=== PATIENT | male | born 1935 | race Caucasian/White ===

== ENCOUNTER → 2016-10-13 | Outpatient (REF) | payer MEDICARE, OTHER ==
[2016-10-13 11:37] LABS: ALBUMIN 4.1 GM/DL (3.2-5.2); ALBUMIN/GLOBULIN RATIO 1.41 (1.00-1.93); ALKALINE PHOSPHATASE 82 U/L (45-117); ALT/SGPT 34 U/L (12-78); ANION GAP 5 MEQ/L (8-16); AST/SGOT 25 U/L (15-37); BILIRUBIN,TOTAL 0.5 MG/DL (0.2-1.0); BLOOD UREA NITROGEN 22 MG/DL (7-18); CARBON DIOXIDE LEVEL 30 MEQ/L (21-32); CHLORIDE LEVEL 106 MEQ/L (98-107); GLOMERULAR FILTRATION RATE > 60.0 (>35); GLUCOSE, FASTING 239 MG/DL (83-110); SODIUM LEVEL 141 MEQ/L (136-145)
== END ==
LOC: M SFHCCLAY 08:23
PROVIDERS: ATTEND Family Medicine
DX: E11.9 Type 2 diabetes mellitus without complications (principal)
CPT/HCPCS: 80053; 83036; G0463

== ENCOUNTER → 2016-11-02 | Outpatient (CLI) | payer MEDICARE, OTHER ==
--- NOTE | 2016-11-02 12:09 | REP ---
TRIPLE PHASE BONE SCAN OF THE HIPS: Following the intravenous administration of 20.5 millicuries technetium 99m MDP, the patient's hips are imaged in the flow phase in the anterior and posterior projections. There is vague increased blood flow to the region of the hip on the posterior images. Immediate blood pool and 2-hour delayed images are performed of the hips in the anterior, posterior, both anterior and posterior oblique and both lateral projections. There is increased blood pooling in the region of the pelvis medial to the right hip. There is focal increased delayed activity in the right ischium inferolaterally compatible with a fracture. IMPRESSION: Increased blood flow, blood pooling, and delayed activity in the right ischium inferolaterally. This is compatible with an acute fracture at this location. Signed by Alan Corral MD 11/02/2016 12:30 P
== END ==
LOC: M RAD 08:01
PROVIDERS: ATTEND Orthopaedic Surgery
DX: M25.551 Pain in right hip (principal)
CPT/HCPCS: 78315; A9503

== ENCOUNTER → 2017-01-12 | Outpatient (REF) | payer MEDICARE, OTHER ==
[2017-01-12 11:54] LABS: ALBUMIN 3.8 GM/DL (3.2-5.2); ALBUMIN/GLOBULIN RATIO 1.36 (1.00-1.93); ALKALINE PHOSPHATASE 70 U/L (45-117); ALT/SGPT 35 U/L (12-78); ANION GAP 6 MEQ/L (8-16); AST/SGOT 24 U/L (15-37); BILIRUBIN,TOTAL 0.5 MG/DL (0.2-1.0); BLOOD UREA NITROGEN 19 MG/DL (7-18); CALCIUM LEVEL 8.8 MG/DL (8.8-10.2); CARBON DIOXIDE LEVEL 30 MEQ/L (21-32); CHLORIDE LEVEL 105 MEQ/L (98-107); CHOLESTEROL LEVEL 136 MG/DL (<200); CREATININE FOR GFR 0.84 MG/DL (0.70-1.30); GLOMERULAR FILTRATION RATE > 60.0 (>35); GLUCOSE, FASTING 155 MG/DL (83-110); POTASSIUM SERUM 4.9 MEQ/L (3.5-5.1); SODIUM LEVEL 141 MEQ/L (136-145); TOTAL PROTEIN 6.6 GM/DL (6.4-8.2); TRIGLYCERIDES LEVEL 36 MG/DL (<150)
== END ==
LOC: M SFHCCLAY 08:05
PROVIDERS: ATTEND Family Medicine
DX: E11.9 Type 2 diabetes mellitus without complications (principal); E78.2 Mixed hyperlipidemia
CPT/HCPCS: 80053; 80061; 83036; G0463

== ENCOUNTER → 2017-02-09 | Outpatient (CLI) | payer MEDICARE, OTHER ==
--- NOTE | 2017-02-09 12:58 | REP ---
Cervical spine seven views: Vertebral body heights and alignment are normal. There is disc space narrowing and degenerative disc disease at C 05/06 and C6-7. The prevertebral soft tissues are unremarkable. The facets are normally aligned. There is no listhesis on flexion or extension. The odontoid view is unremarkable. There are calcifications in the soft tissues bilaterally, likely vascular atheroma in the carotid arteries. There is foraminal encroachment from uncinate spurring on the left at C 05/06. There is mild foraminal encroachment from uncinate spurring on the right at C 05/06. Impression: C5-6 C6-7 degenerative disc disease. Foraminal encroachment as described.
== END ==
LOC: M CLY 11:53
PROVIDERS: ATTEND Family Medicine
DX: M62.838 Other muscle spasm (principal); M50.30 Other cervical disc degeneration, unspecified cervical region
CPT/HCPCS: 72050; G0463

== ENCOUNTER → 2017-04-19 | Outpatient (REF) | payer MEDICARE, OTHER ==
[2017-04-19 13:49] LABS: ALBUMIN 3.6 GM/DL (3.2-5.2); ALKALINE PHOSPHATASE 68 U/L (45-117); ALT/SGPT 29 U/L (12-78); ANION GAP 9 MEQ/L (8-16); AST/SGOT 16 U/L (15-37); BILIRUBIN,TOTAL 0.5 MG/DL (0.2-1.0); BLOOD UREA NITROGEN 15 MG/DL (7-18); CALCIUM LEVEL 8.3 MG/DL (8.8-10.2); CARBON DIOXIDE LEVEL 29 MEQ/L (21-32); CHLORIDE LEVEL 104 MEQ/L (98-107); CREATININE FOR GFR 0.89 MG/DL (0.70-1.30); GLOMERULAR FILTRATION RATE > 60.0 (>35); GLUCOSE, FASTING 266 MG/DL (83-110); POTASSIUM SERUM 5.1 MEQ/L (3.5-5.1); SODIUM LEVEL 142 MEQ/L (136-145); TOTAL PROTEIN 6.6 GM/DL (6.4-8.2)
== END ==
LOC: M SFHCCLAY 09:03
PROVIDERS: ATTEND Family Medicine
DX: E11.9 Type 2 diabetes mellitus without complications (principal)
CPT/HCPCS: 80053; 83036; G0463

== ENCOUNTER → 2017-11-05 | Outpatient (REF) | payer MEDICARE, OTHER ==
[2017-11-05 11:32] LABS: BASO % 0.7 % (0.0-1.0); EOS % 0.7 % (0.0-3.0); HEMATOCRIT 40.2 % (42.0-52.0); HEMOGLOBIN 13.1 g/dl (14.0-18.0); IMMATURE GRANULOCYTE % 0.2 % (0-3.0); LYMPH # 1.6 10^3/uL (1.5-4.5); LYMPH % 28.5 % (24.0-44.0); MEAN CORPUSCULAR HEMOGLOBIN 30.9 pg (27.0-33.0); MEAN CORPUSCULAR HGB CONC 32.6 g/dl (32.0-36.5); MEAN CORPUSCULAR VOLUME 94.8 fl (80.0-96.0); MONO # 0.5 10^3/uL (0.0-0.8); MONO % 9.3 % (0.0-5.0); NEUTROPHILS # 3.3 10^3/uL (1.8-7.7); NEUTROPHILS % 60.6 % (36.0-66.0); PLATELET COUNT, AUTOMATED 250 10^3/uL (150-450); RED BLOOD COUNT 4.24 10^6/uL (4.30-6.10); RED CELL DISTRIBUTION WIDTH 13.6 % (11.5-14.5); WHITE BLOOD COUNT 5.5 10^3/uL (4.0-10.0)
[2017-11-05 11:49] LABS: ALBUMIN 3.8 GM/DL (3.2-5.2); ALBUMIN/GLOBULIN RATIO 1.23 (1.00-1.93); ALKALINE PHOSPHATASE 77 U/L (45-117); ALT/SGPT 26 U/L (12-78); ANION GAP 3 MEQ/L (8-16); AST/SGOT 26 U/L (7-37); BILIRUBIN,TOTAL 0.7 MG/DL (0.2-1.0); BLOOD UREA NITROGEN 16 MG/DL (7-18); CALCIUM LEVEL 8.7 MG/DL (8.8-10.2); CARBON DIOXIDE LEVEL 30 MEQ/L (21-32); CHLORIDE LEVEL 106 MEQ/L (98-107); GLOMERULAR FILTRATION RATE > 60.0 (>35); GLUCOSE, FASTING 348 MG/DL (70-100); SODIUM LEVEL 139 MEQ/L (136-145); TOTAL PROTEIN 6.9 GM/DL (6.4-8.2)
[2017-11-05 11:50] LABS: POTASSIUM SERUM 5.3 MEQ/L (3.5-5.1)
[2017-11-05 13:44] LABS: ESTIMATED AVERAGE GLUCOSE 203 MG/DL (60-110); HEMOGLOBIN A1c 8.7 %
== END ==
LOC: M SFHCCLAY 07:38
DX: E11.9 Type 2 diabetes mellitus without complications (principal); E78.2 Mixed hyperlipidemia; R53.83 Other fatigue; R03.0 Elevated blood-pressure reading, without diagnosis of hypertension
CPT/HCPCS: 84443

== ENCOUNTER → 2017-12-12 | Outpatient (REF) | payer MEDICARE, OTHER | LOC: M SFHCCLAY 09:20 | DX: E03.9 Hypothyroidism, unspecified (principal) | CPT/HCPCS: 84443 ==

== ENCOUNTER → 2018-05-09 | Outpatient (REF) | payer MEDICARE, OTHER ==
[2018-05-10 13:36] LABS: ALBUMIN 4.1 GM/DL (3.2-5.2); ALBUMIN/GLOBULIN RATIO 1.37 (1.00-1.93); ALKALINE PHOSPHATASE 72 U/L (45-117); ALT/SGPT 31 U/L (12-78); ANION GAP 10 MEQ/L (8-16); AST/SGOT 19 U/L (7-37); BILIRUBIN,TOTAL 0.5 MG/DL (0.2-1.0); BLOOD UREA NITROGEN 15 MG/DL (7-18); CALCIUM LEVEL 9.2 MG/DL (8.8-10.2); CARBON DIOXIDE LEVEL 27 MEQ/L (21-32); CHLORIDE LEVEL 104 MEQ/L (98-107); CHOLESTEROL LEVEL 130 MG/DL (<200); CHOLESTEROL RISK RATIO 2.407 (<5); CREATININE FOR GFR 0.91 MG/DL (0.70-1.30); GLOMERULAR FILTRATION RATE > 60.0 (>35); GLUCOSE, FASTING 308 MG/DL (70-100); HDL CHOLESTEROL 54 MG/DL (>40); LDL CHOLESTEROL 58 MG/DL (<100); NON-HDL-C 76 MG/DL; POTASSIUM SERUM 5.1 MEQ/L (3.5-5.1); SODIUM LEVEL 141 MEQ/L (136-145); TOTAL PROTEIN 7.1 GM/DL (6.4-8.2); TRIGLYCERIDES LEVEL 89 MG/DL (<150)
[2018-05-10 14:18] LABS: ESTIMATED AVERAGE GLUCOSE 180 MG/DL (60-110); HEMOGLOBIN A1c 7.9 %
== END ==
LOC: M SFHCCLAY 14:27
DX: E78.2 Mixed hyperlipidemia (principal); E11.9 Type 2 diabetes mellitus without complications; E03.9 Hypothyroidism, unspecified
CPT/HCPCS: 84443

== ENCOUNTER 2018-11-02 00:02 | Emergency (ER) | payer MEDICARE, OTHER ==
[~2018-11-02] VITALS: Ht 177.8 cm; Wt 81.8 kg
[2018-11-02] MEDS ORDERED: LEVO50TA5 PO (00:12)
[2018-11-02] MEDS ORDERED: METF10004 PO (00:12)
[2018-11-02] MEDS ORDERED: HUMA100I5 (00:12)
[2018-11-02] MEDS ORDERED: LANTINJ4 SQ (00:12)
[2018-11-02] MEDS ORDERED: ASPIRIN 325 MG TAB PO ONE (00:30)
[2018-11-02 00:52] LABS: BASO % 0.4 % (0.0-1.0); EOS # 0.1 10^3/uL (0.0-0.50); EOS % 1.6 % (0.0-3.0); HEMATOCRIT 37.1 % (42.0-52.0); HEMOGLOBIN 12.3 g/dl (13.5-17.5); LYMPH # 1.9 10^3/uL (1.5-4.5); LYMPH % 27.6 % (24.0-44.0); MEAN CORPUSCULAR HEMOGLOBIN 31.1 pg (27.0-33.0); MEAN CORPUSCULAR HGB CONC 33.2 g/dl (32.0-36.5); MEAN CORPUSCULAR VOLUME 93.7 fl (80.0-96.0); MONO # 0.6 10^3/uL (0.0-0.8); MONO % 8.5 % (0.0-5.0); NEUTROPHILS # 4.2 10^3/uL (1.8-7.7); NEUTROPHILS % 61.6 % (36.0-66.0); PLATELET COUNT, AUTOMATED 224 10^3/uL (150-450); RED BLOOD COUNT 3.96 10^6/uL (4.30-6.10); VENOUS BASE EXCESS 4.4 (-2.0-2.0); VENOUS HCO3 31.3 MEQ/L (23.0-27.0); VENOUS O2 SATURATION 58.8 % (60.0-80.0); VENOUS PARTIAL PRESSURE CO2 56.3 mmHg (38.0-50.0); VENOUS PARTIAL PRESSURE O2 31.5 mmHg (30.0-50.0); VENOUS PH 7.363 UNITS (7.330-7.430); VENOUS STANDARD HCO3 27.5 MEQ/L; WHITE BLOOD COUNT 6.9 10^3/uL (4.0-10.0)
[2018-11-02 01:18] LABS: BLOOD UREA NITROGEN 15 MG/DL (7-18); CALCIUM LEVEL 8.4 MG/DL (8.8-10.2); CARBON DIOXIDE LEVEL 29 MEQ/L (21-32); CHLORIDE LEVEL 105 MEQ/L (98-107); CPK CREATINE PHOSPHOKINASE 212 U/L (39-308); CREATININE FOR GFR 1.03 MG/DL (0.70-1.30); GLOMERULAR FILTRATION RATE > 60.0 (>35); GLUCOSE, FASTING 300 MG/DL (70-100); MB/CK RELATIVE INDEX 3.63 (< OR =4); POTASSIUM SERUM 3.9 MEQ/L (3.5-5.1); SODIUM LEVEL 139 MEQ/L (136-145); TROPONIN I 0.72 NG/ML (< 0.10)
[2018-11-02 01:25] LABS: INR 1.04; PROTHROMBIN TIME 13.7 SECONDS (12.1-14.4)
[2018-11-02] MEDS ORDERED: CLOPIDOGREL 300 MG TAB (PLAVIX) PO STA (01:37)
[2018-11-02] MEDS ORDERED: HEPARIN DRIP 25,000 UNITS in APPROPRIATE DILUENT 1 EA IV SCH (01:37)
[2018-11-02] MEDS ORDERED: NITROGLYCERIN 2% OINT 1 GM *U/D* PKT TOP ONE (01:45)
[2018-11-02] MEDS ORDERED: HEPARIN SOD (PORCINE) 5000 UNITS/ML VIAL IV ONE (01:45)
[2018-11-02] MEDS ORDERED: HumaLOG INSULIN (NovoLOG) PER UNIT SC STA (02:03)
[2018-11-02] MEDS ORDERED: SYNT25TA PO (02:28)
[2018-11-02] MEDS ORDERED: PRAV40TA2 PO (02:28)
[2018-11-02] MEDS ORDERED: OMEP20CA3 PO (02:28)
[2018-11-02] MEDS ORDERED: ASPI81TA28 PO (02:30)
[2018-11-02 03:43] VITALS: BP 130/69
--- NOTE | 2018-11-02 07:35 | ECGEPIP ---
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
--- NOTE | 2018-11-02 11:00 | REP ---
CHEST, TWO VIEWS: Two views of the chest were performed. Comparison is made with prior study 08/29/2007. There is no acute infiltrate. The heart is normal in size. There is mild calcification and tortuosity of the thoracic aorta. The mediastinal silhouette is unchanged. There are mild degenerative changes of the spine. IMPRESSION: No evidence of acute pulmonary disease. Electronically Signed by Alan Corral MD 11/02/2018 06:56 P
== END 2018-11-02 03:49 | disposition short-term general hospital (02) ==
LOC: M ED 00:02
DX: I21.4 Non-ST elevation (NSTEMI) myocardial infarction (principal); R00.1 Bradycardia, unspecified; E11.9 Type 2 diabetes mellitus without complications; E78.5 Hyperlipidemia, unspecified; E03.9 Hypothyroidism, unspecified; K21.9 Gastro-esophageal reflux disease without esophagitis; Z95.5 Presence of coronary angioplasty implant and graft; Z87.891 Personal history of nicotine dependence

== ENCOUNTER 2018-11-22 18:43 | Inpatient (IN) | payer MEDICARE, OTHER ==
[~2018-11-22] VITALS: Ht 180.3 cm; Wt 84.5 kg
[~2018-11-22 18:43] MED LIST: ASPI81TA28 PO; HUMA100I5 SQ; LANTINJ4 SQ; LEVO50TA5 PO; METF10004 PO; OMEP20CA3 PO; PRAV40TA2 PO; SYNT25TA PO
[2018-11-22] MEDS ORDERED: CLOP75TA2 PO (18:55)
[2018-11-22] MEDS ORDERED: AZOP0.2S OU (19:00)
[2018-11-22] MEDS ORDERED: LATANOPROST (19:00)
[2018-11-22] MEDS ORDERED: NITR0.4S14 PO (19:00)
[2018-11-22] MEDS ORDERED: REST0.05 OU (19:00)
[2018-11-22] MEDS ORDERED: LEVO50TA5 PO (19:00)
[2018-11-22] MEDS ORDERED: VITA1CAP21 PO (19:00)
[2018-11-22 19:47] LABS: BASO % 0.5 % (0.0-1.0); EOS # 0.1 10^3/uL (0.0-0.50); EOS % 1.2 % (0.0-3.0); HEMATOCRIT 36.1 % (42.0-52.0); LYMPH # 1.8 10^3/uL (1.5-4.5); LYMPH % 31.3 % (24.0-44.0); MEAN CORPUSCULAR HEMOGLOBIN 31.1 pg (27.0-33.0); MEAN CORPUSCULAR HGB CONC 33.2 g/dl (32.0-36.5); MEAN CORPUSCULAR VOLUME 93.5 fl (80.0-96.0); MONO # 0.5 10^3/uL (0.0-0.8); MONO % 8.9 % (0.0-5.0); NEUTROPHILS # 3.3 10^3/uL (1.8-7.7); NEUTROPHILS % 57.9 % (36.0-66.0); PLATELET COUNT, AUTOMATED 224 10^3/uL (150-450); RED BLOOD COUNT 3.86 10^6/uL (4.30-6.10); WHITE BLOOD COUNT 5.7 10^3/uL (4.0-10.0)
[2018-11-22 19:59] LABS: INR 1.08; PROTHROMBIN TIME 14.1 SECONDS (12.1-14.4)
[2018-11-22 20:11] LABS: BLOOD UREA NITROGEN 16 MG/DL (7-18); CALCIUM LEVEL 8.4 MG/DL (8.8-10.2); CARBON DIOXIDE LEVEL 27 MEQ/L (21-32); CHLORIDE LEVEL 107 MEQ/L (98-107); CPK CREATINE PHOSPHOKINASE 151 U/L (39-308); CREATININE FOR GFR 1.21 MG/DL (0.70-1.30); GLOMERULAR FILTRATION RATE > 60.0 (>35); GLUCOSE, FASTING 169 MG/DL (70-100); MB/CK RELATIVE INDEX 2.25 (< OR =4); POTASSIUM SERUM 3.9 MEQ/L (3.5-5.1); SODIUM LEVEL 141 MEQ/L (136-145)
[2018-11-22 20:23] LABS: NT-PRO BNP 875 PG/ML (<450)
[2018-11-22] MEDS ORDERED: LISI-1046 PO (20:47)
--- NOTE | 2018-11-22 22:03 | ECGEPIP ---
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
[2018-11-23 00:31] LABS: MB/CK RELATIVE INDEX 2.05 (< OR =4); TROPONIN I 0.09 NG/ML (< 0.10)
[2018-11-23] MEDS ORDERED: ISOVUE-370 76% 100ML VIAL (Q9967) As Ordered ONE (00:35)
--- NOTE | 2018-11-23 01:06 | REPVR ---
EXAM: CT Angiography Chest With Contrast EXAM DATE/TIME: 11/23/2018 12:15 AM CLINICAL HISTORY: 83 years old, male; Signs and symptoms; Dyspnea; Additional info: Dysp TECHNIQUE: Imaging protocol: Axial computed tomographic angiography images of the chest with intravenous contrast using CT angiography protocol. Coronal and sagittal reformatted images were created and reviewed. 3D rendering: MIP reconstructed images were created and reviewed. Radiation optimization: All CT scans at this facility use at least one of these dose optimization techniques: automated exposure control; mA and/or kV adjustment per patient size (includes targeted exams where dose is matched to clinical indication); or iterative reconstruction. Contrast material: iso Contrast volume: 75 ml Contrast route: ac COMPARISON: CR PORTABLE CHEST X-RAY 11/22/2018 7:29 PM FINDINGS: Pulmonary arteries: Main pulmonary artery is enlarged measuring 3.3 cm may represent pulmonary hypertension. No filling defect to suggest pulmonary embolism. Aorta: Ascending thoracic aorta as borderline enlarged measuring up to 3.4 cm. Lungs: Atelectasis in the lingula. Ground glass densities bilateral lower lobes likely edema versus inflammation or infection. Pleural space: Normal. No pneumothorax. No pleural effusion. Heart: Cardiomegaly. Coronary calcifications. Lymph nodes: Unremarkable. No enlarged lymph nodes. Bones/joints: Linear degenerative changes. Diffuse demineralization of the bones with degenerative changes. Soft tissues: Unremarkable. Other findings: Atherosclerosis. IMPRESSION: No evidence of pulmonary embolism. Atelectasis in the lingula. Ground glass densities bilateral lower lobes likely edema versus inflammation or infection. Electronically signed by: Anni Kaur On 11/23/2018 01:05:50 AM
[2018-11-23] MEDS ORDERED: XALA0.007 OU (02:58)
[2018-11-23] MEDS ORDERED: ATOR40TA75 PO (02:58)
[2018-11-23] MEDS ORDERED: GLUCOSE 4 GM CHEW TABLET PO PRN (03:30)
[2018-11-23] MEDS ORDERED: DEXTROSE 50% 50 ML SYRINGE IV PRN (03:30)
[2018-11-23] MEDS ORDERED: GLUCAGON FOR INJ 1 MG VIAL (J1610) SC PRN (03:30)
[2018-11-23 04:41] VITALS: BP 145/75
[2018-11-23] MEDS: LEVOTHYROXINE 50MCG TABLET (0.05MG) PO SCH (05:58)
[2018-11-23 06:37] LABS: BASO % 0.6 % (0.0-1.0); EOS # 0.1 10^3/uL (0.0-0.50); HEMATOCRIT 35.7 % (42.0-52.0); HEMOGLOBIN 11.6 g/dl (13.5-17.5); LYMPH # 1.4 10^3/uL (1.5-4.5); LYMPH % 27.8 % (24.0-44.0); MEAN CORPUSCULAR HEMOGLOBIN 30.3 pg (27.0-33.0); MEAN CORPUSCULAR HGB CONC 32.5 g/dl (32.0-36.5); MEAN CORPUSCULAR VOLUME 93.2 fl (80.0-96.0); MONO # 0.5 10^3/uL (0.0-0.8); MONO % 10.3 % (0.0-5.0); NEUTROPHILS % 59.1 % (36.0-66.0); PLATELET COUNT, AUTOMATED 197 10^3/uL (150-450); RED BLOOD COUNT 3.83 10^6/uL (4.30-6.10); WHITE BLOOD COUNT 5.1 10^3/uL (4.0-10.0)
--- NOTE | 2018-11-23 06:39 | HPEPDOC ---
General Date of Admission 11/23/18 Attending Physician: SILAS CHILDRESS MD Chief Complaint The patient is a 83-year-old male admitted with a reason for visit of Chest Pain / Discomfort. Source: Patient, Old records Exam Limitations: No limitations History of Present Illness 83 year old male with PMH of CAD s/p stents in 2010 and another stent in october 2018, Diabetes, hypothyroid, hypertension, hyperlipidemia, GERD, bradycardia presented to the ED with complaints of exertional dyspnea slowly worsening over the past 1 week. 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 Last evening he wanted to walk to the barn to check on an animal and could hardly making it there for SOB so came to the ED for evaluation. Home Medications Scheduled Aspirin (Aspirin EC) 81 Mg Tab, 81 MG PO DAILY, (Reported) Atorvastatin Calcium (Atorvastatin Calcium) 40 Mg Tablet, 40 MG PO QHS, (Reported) Brinzolamide (Azopt) 10 Ml Drops.susp, 1 DROP OU DAILY, (Reported) Clopidogrel Bisulfate (Clopidogrel) 75 Mg Tablet, 75 MG PO QPM, (Reported) Insulin Glargine,Hum.rec.anlog (Lantus Solostar) 100 Unit/Ml Inj, 40 UNITS SQ DAILY, (Reported) Insulin Lispro (Humalog Kwikpen U-100) 100 Unit/Ml Inj, 1 DOSE SQ ACHS, (Reported) PER SLIDING SCALE Latanoprost (Xalatan) 2.5 Ml Drops, 1 DROP OU QHS, (Reported) Levothyroxine Sodium (Levothyroxine Sodium) 50 Mcg Tablet, 50 MCG PO QAM, (Rep orted) Lisinopril (Lisinopril) 2.5 Mg Tablet, 2.5 MG PO BID, (Reported) Metformin HCl (Metformin HCl) 1,000 Mg Tab, 1,000 MG PO BID, (Reported) Omeprazole (Omeprazole) 20 Mg Cap, 20 MG PO DAILY, (Reported) Vitamin A Palmitate (Vitamin A) 10,000 Unit Capsule, 10,000 UNIT PO DAILY, (Reported) Scheduled PRN Cyclosporine (Restasis) 1 Each Droperette, 1 DROP OU BID PRN for DRY EYES, (Reported) Nitroglycerin (Nitroglycerin) 0.4 Mg Tab.subl, 0.4 MG PO Q5MP PRN for CHEST PAIN, (Reported) Allergies Coded Allergies: No Known Allergies (Unverified , 11/02/18) Past Medical History Medical History CAD s/p angioplasty and stent on november 03 2018 Diabetes Hypertension Bradycardia HYPERLIPIDEMIA HISTORY OF SCC LEFT LOWER CALF 05/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 WRIST 06/20 OSTEOPOROSIS BCC- RIGHT EAR 10/28 Hypothyroid Surgical History LEFT SHOULDER ROTATOR CUFF REPAIR 09/19 3 CARDIAC STENTS PLACED 04/13/11 LEFT WRIST CARPAL TUNNEL APPENDECTOMY BILATERAL TRIGGER FINGER CARDIAC STENT X1 AND ANGIOPLASTY X 1 10/2018 Review of Systems Constitutional: Denies: Chills, Fever, Malaise, Weakness, Fatigue ENT: Denies: Head Aches, Ear Pain, Dysphagia Skin: Denies: Rash, Lesions, Breakdown Pulmonary: Reports: Dyspnea; Denies: Cough, Pleuritic Chest Pain, Other Symptoms Cardiovascular: Reports: Chest Pain Gastrointestinal: Denies: Nausea, Vomiting, Abdominal Pain, Diarrhea, Constipat ion Genitourinary: Denies: Dysuria, Frequency, Incontinence, Retention Physical Examination General Exam: Positive: Alert, Cooperative, No Acute Distress Eye Exam: Positive: PERRLA, Conjunctiva & lids normal, EOMI; Negative: Sclera icteric ENT Exam: Positive: Atraumatic, Mucous membr. moist/pink, Pharynx Normal Neck Exam: Negative: Supple, JVD, thyromegaly, +2 carotid pulse wo bruit Chest Exam: Positive: Clear to auscultation, Normal air movement Heart Exam: Positive: Bradycardic, Regular Rhythm, Normal S1, Normal S2; Negative: Gallops, Murmurs, Rubs Telemetry: Positive: Bradycardia Abdomen Exam: Positive: Normal bowel sounds, Soft; Negative: Tenderness, Hepatospenomegaly, Mass, Hernia, Other Vital Signs Vital Signs Date Time Temp Pulse Resp B/P (MAP) Pulse Ox O2 Delivery O2 Flow Rate FiO2 11/23/18 02:15 48 18 92 Room Air 11/23/18 00:30 125/59 (81) 11/22/18 18:44 96.3 Laboratory Data Labs 24H Laboratory Tests 2 11/22/18 19:27: Immature Granulocyte % (Auto) 0.2, White Blood Count 5.7, Red Blood Count 3.86L, Hemoglobin 12.0L, Hematocrit 36.1L, Mean Corpuscular Volume 93.5, Mean Corpuscular Hemoglobin 31.1, Mean Corpuscular Hemoglobin Concent 33.2, Red Cell Distribution Width 13.4, Platelet Count 224, Neutrophils (%) (Auto) 57.9, Lymphocytes (%) (Auto) 31.3, Monocytes (%) (Auto) 8.9H, Eosinophils (%) (Auto) 1.2, Basophils (%) (Auto) 0.5, Neutrophils # (Auto) 3.3, Lymphocytes # (Auto) 1.8, Monocytes # (Auto) 0.5, Eosinophils # (Auto) 0.1, Basophils # (Auto) 0.0, Nucleated Red Blood Cells % (auto) 0.0, Prothrombin Time 14.1, Prothromb Time International Ratio 1.08, Anion Gap 7L, Glomerular Filtration Rate > 60.0, Blood Urea Nitrogen 16, Creatinine 1.21, Sodium Level 141, Potassium Level 3.9, Chloride Level 107, Carbon Dioxide Level 27, Calcium Level 8.4L, Total Creatine Kinase 151, Creatine Kinase MB 3.0, Creatine Kinase MB Relative Index 2.25, Troponin I 0.10, EV-Gzq-B-Type Natriuretic Peptide 875H 11/22/18 20:52: Bedside Glucose (Misc Panel) 133H 11/22/18 23:15: Bedside Glucose (Misc Panel) 71L 11/22/18 23:51: Total Creatine Kinase 146, Creatine Kinase MB 3.0, Creatine Kinase MB Relative Index 2.05, Troponin I 0.09 CBC/BMP Laboratory Tests 11/22/18 19:27 Red Blood Count 3.86 L, Mean Corpuscular Volume 93.5, Mean Corpuscular Hemoglobin 31.1, Mean Corpuscular Hemoglobin Concent 33.2, Red Cell Distribution Width 13.4, Neutrophils (%) (Auto) 57.9, Lymphocytes (%) (Auto) 31.3, Monocytes (%) (Auto) 8.9 H, Eosinophils (%) (Auto) 1.2, Basophils (%) (Auto) 0.5, Neutrophils # (Auto) 3.3, Lymphocytes # (Auto) 1.8, Monocytes # (Auto) 0.5, Eosinophils # (Auto) 0.1, Basophils # (Auto) 0.0, Calcium Level 8.4 L, Total Creatine Kinase 151 Assessment/Plan 83 year old male with PMH of CAD s/p stents in 2010 and another stent in october 2018, Diabetes, hypothyroid, hypertension, hyperlipidemia, GERD, bradycardia presented to the ED with complaints of exertional dyspnea slowly worsening over the past 1 week. 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 Last evening he wanted to walk to the barn to check on an animal and could hardly making it there for SOB so came to the ED for evaluation. Dyspnea on exertion possible ongoing angina vs CHF will get echo give iv lasix continue asa, plavix, statin, nitro prn Follow with Dr Harry. consider consulting him. Coronary artery disease s/p stents in 2010 and again in October 2018 continue ASA, plavix, statin Sinus bradycardia patient is not on any A-V blocking medicines will place on tele to monitor for any prolonged pauses. Diabetes continue levemir and lispro Hyperlipidemia on statin Hypothyroid continue synthroid Hypertension continue lisinopril. DVT prophylaxis has been ordered. Plan / VTE VTE Prophylaxis Ordered?: Yes SILAS CHILDRESS MD Nov 23, 2018 02:36
[2018-11-23] MEDS ORDERED: NITROGLYCERIN 0.4 MG SUBL TABLET SL PRN (06:45)
[2018-11-23 07:07] LABS: BLOOD UREA NITROGEN 14 MG/DL (7-18); CALCIUM LEVEL 8.2 MG/DL (8.8-10.2); CARBON DIOXIDE LEVEL 30 MEQ/L (21-32); CHLORIDE LEVEL 105 MEQ/L (98-107); CPK CREATINE PHOSPHOKINASE 128 U/L (39-308); CREATININE FOR GFR 1.03 MG/DL (0.70-1.30); GLOMERULAR FILTRATION RATE > 60.0 (>35); GLUCOSE, FASTING 188 MG/DL (70-100); MB/CK RELATIVE INDEX 2.42 (< OR =4); POTASSIUM SERUM 4.2 MEQ/L (3.5-5.1); SODIUM LEVEL 141 MEQ/L (136-145)
--- NOTE | 2018-11-23 08:20 | REP ---
Oral chest x-ray: Single view. History: Chest pain. Comparison study: November 02, 2018. Findings: EKG monitoring electrodes overlie the chest. There are increased linear markings at the left base consistent with atelectasis and/or developing infiltrate. Remaining lung prieto are clear. Cardiomediastinal silhouette is unchanged. Pulmonary vasculature is a little cephalized. No pleural effusion is seen. Impression: Increased markings left base may be discoid atelectasis or developing infiltrate. Otherwise no acute disease. Electronically Signed by Rikki Adams MD 11/23/2018 08:12 A
[2018-11-23] MEDS: ASPIRIN 81 MG CHEW TABLET PO SCH (08:33)
[2018-11-23] MEDS: FUROSEMIDE 20 MG/2 ML VIAL (J1940) IV SCH (08:33)
[2018-11-23] MEDS: ENOXAPARIN 30 MG/0.3 ML SYR (J1650) SC SCH (08:33)
[2018-11-23] MEDS: OMEPRAZOLE 20 MG CAP PO SCH (08:34)
[2018-11-23] MEDS: LISINOPRIL *2.5 MG* TAB PO SCH ×2 (08:37→21:19)
[2018-11-23] MEDS: HumaLOG INSULIN (NovoLOG) PER UNIT SC SCH ×4 (08:38→20:24)
[2018-11-23] MEDS ORDERED: LEVEMIR (INSULIN DETEMIR) 1 UNITS/0.01ML SC SCH (09:00)
[2018-11-23 14:00] VITALS: BP 122/55
[2018-11-23] MEDS: ISOSORBIDE MON. (IMDUR) 60 MG XR TAB PO SCH (15:54)
[2018-11-23] MEDS: LATANOPROST 0.005% OPHTH SOLN 2.5 ML OU SCH (21:17)
[2018-11-23] MEDS: CLOPIDOGREL 75 MG TAB PO SCH (21:17)
[2018-11-23] MEDS: ATORVASTATIN 20 MG TAB PO SCH (21:19)
[2018-11-23 22:00] VITALS: BP 125/62
[2018-11-23 22:50] VITALS: BP 115/65
[2018-11-24] MEDS: LEVOTHYROXINE 50MCG TABLET (0.05MG) PO SCH (05:42)
[2018-11-24 06:00] VITALS: BP 130/63
[2018-11-24] MEDS: HumaLOG INSULIN (NovoLOG) PER UNIT SC SCH ×5 (07:30→22:21)
--- NOTE | 2018-11-24 10:49 | IPNPDOC ---
Subjective Date Seen The patient was seen on 11/24/18. Subjective Chief Complaint/HPI Patient comfortable lying in bed, no shortness of breath, chest pain General: Reports: Normal Appetite; Denies: Chills, Night Sweats, Fatigue, Malaise Constitutional: Denies: Chills, Fever, Night Sweats Eyes: Denies: Pain, Vision change ENT: Denies: Head Aches, Ear Pain, Dysphagia Skin: Denies: Rash, Lesions, Breakdown Pulmonary: Denies: Dyspnea, Cough Cardiovascular: Denies: Chest Pain, Palpitations, Orthopnea, Paroxysmal Noc. Dyspnea, Lt Headedness Gastrointestinal: Denies: Nausea, Vomiting, Abdominal Pain, Diarrhea, Constipation Genitourinary: Denies: Dysuria, Frequency, Incontinence, Retention Hematologic: Denies: Bruising, Bleeding Excessively Musculoskeletal: Denies: Neck Pain, Back Pain, Joint Pain, Muscle Pain, Spasms Neurological: Denies: Weakness, Numbness, Change in speech, Confusion Psych: Reports: Mood Normal; Denies: Depression, Memory Issues Objective Physical Examination General Exam: Positive: Alert, Cooperative, No Acute Distress Eye Exam: Positive: PERRLA, Conjunctiva & lids normal, EOMI; Negative: Sclera icteric ENT Exam: Positive: Atraumatic, Mucous membr. moist/pink, Pharynx Normal Neck Exam: Negative: Supple, JVD, thyromegaly, +2 carotid pulse wo bruit Chest Exam: Positive: Clear to auscultation, Normal air movement Heart Exam: Positive: Bradycardic, Regular Rhythm, Normal S1, Normal S2; Negative: Gallops, Murmurs, Rubs Telemetry: Positive: Bradycardia Abdomen Exam: Positive: Normal bowel sounds, Soft; Negative: Tenderness, Hepatospenomegaly, Mass, Hernia, Other Extremity Exam: Negative: Clubbing, Cyanosis, Edema, Normal pulses, Tenderness, Swelling, Other Skin Exam: Negative: Nl turgor and temperature, Rash, Breakdown, Lesion, Pruritus, Other skin issue Neuro Exam: Negative: Normal Gait, Normal Speech, Strength at 5/5 X4 ext, Normal Tone, Sensation Intact, Cranial Nerves 3-12 NL, Reflexes 2+, Other Psych Exam: Negative: Mental status NL, Mood NL, Anxiety, Memory Intact, Oriented x 3, Other Assessment /Plan Problems (1) Exertional dyspnea Status: Acute Problem Text: Patient has a history of CAD with a stent placed in 2010 Continue all outpatient medications His troponin 1 negative. EKG does not show any evidence of acute infarct Patient can be discharged home tomorrow after echocardiogram and follow with and to call as an outpatient as soon as possible (2) Arrhythmia Problem Text: Patient had an episode of sinus bradycardia last night which resolved by itself. His heart rate went down as much as 30 bpm His morning he had a nonsustained run of V. tach, about 12 beats I called and discussed with Dr. sheppard, as he follows patient as an outpatient As per daughter and to go patient had a cardiac standpoint placed in 2010 and 2017. He did not have a repeat echo done since 2016. He has a previous history of asymptomatic bradycardia while sleeping and also nonsustained V. tach which is asymptomatic. Thanks patient probably has a notable disorder, but that can be addressed as an outpatient, echo is still pending. If it's about the normal limit. Ejection fraction is normal, then patient can be discharged home to follow with Dr. Harry in his office. Stop any new meds, such as beta blockers or nitrates (3) Hypoglycemia Problem Text: As per patient, he does gets episodes of hypoglycemia at home and he keeps oranges by his bedside As found to have a similar episode first thing in the morning in the hospital Will decrease his Lantus from 40 units to 35 units daily at bedtime Please follow his fingerstick blood sugar in a.m. Plan/VTE VTE Prophylaxis Ordered?: Yes VS, I&O, 24H, Fishbone Vital Signs/I&O Vital Signs Date Time Temp Pulse Resp B/P (MAP) Pulse Ox O2 Delivery O2 Flow Rate FiO2 11/24/18 06:00 98.3 48 16 130/63 (85) 98 11/23/18 04:17 Room Air I&O- Last 24 Hours up to 6 AM 11/24/18 06:00 Intake Total 1360 ml Output Total 0 ml Balance 1360 ml Laboratory Data 24H LABS Laboratory Tests 2 11/23/18 11:21: Bedside Glucose (Misc Panel) 40L 11/23/18 11:30: Bedside Glucose (Misc Panel) 57L 11/23/18 11:40: Bedside Glucose Confirm (Misc) 84 11/23/18 16:54: Bedside Glucose (Misc Panel) 151H 11/23/18 18:04: Bedside Glucose (Misc Panel) 115H 11/23/18 20:16: Bedside Glucose (Misc Panel) 163H 11/24/18 05:54: Bedside Glucose (Misc Panel) 57L REX GANN MD Nov 24, 2018 10:49
[2018-11-24] MEDS: ASPIRIN 81 MG CHEW TABLET PO SCH (11:04)
[2018-11-24] MEDS: ENOXAPARIN 30 MG/0.3 ML SYR (J1650) SC SCH (11:04)
[2018-11-24] MEDS: FUROSEMIDE 20 MG/2 ML VIAL (J1940) IV SCH (11:05)
[2018-11-24] MEDS: OMEPRAZOLE 20 MG CAP PO SCH (11:05)
[2018-11-24] MEDS: ISOSORBIDE MON. (IMDUR) 60 MG XR TAB PO SCH (11:07)
[2018-11-24] MEDS: LISINOPRIL *2.5 MG* TAB PO SCH (11:07)
[2018-11-24] MEDS: LEVEMIR (INSULIN DETEMIR) 1 UNITS/0.01ML SC SCH (11:08)
--- NOTE | 2018-11-24 13:52 | ECHO ---
DATE OF PROCEDURE: 11/24/2018 REFERRING PHYSICIAN: Dr. Bella Ronquillo. INDICATION: Dyspnea. HEIGHT: 180 cm. WEIGHT: 86.0 kg. 2D MEASUREMENTS: Left ventricle diastole: 6.6 cm Ventricular septum: 1.16 cm Posterior wall: 1.14 cm Left atrium: 4.7 cm Aortic root: 3.6 cm Aortic annulus: 2.8 cm LVOT: 2.8 cm Left atrial volume index: 39 Inferior vena cava: 2.0 cm DOPPLER MEASUREMENTS: Mild aortic regurgitation. Aortic valve velocity: 104 cm/s LVOT velocity: 64.9 cm/s LVOT VTI: 16.9 cm Trace mitral regurgitation. Mitral E velocity: 60.2 cm/s Mitral A velocity: 64.5 cm/s Mitral deceleration time: 162 ms Very mild tricuspid regurgitation. Estimated right ventricle systolic pressure: 36-41 mmHg assuming a right atrial pressure of 5-10 mmHg. Trace tricuspid regurgitation. MITRAL ANNULAR TISSUE DOPPLER: E prime septal: 4.6 cm/s E prime lateral: 5.8 cm/s DESCRIPTION: Rhythm was marked sinus bradycardia hovering at about 40 beats per minute. Image quality was fair. This was a 2D, M-mode, color flow Doppler and pulse wave Doppler examination and included mitral annular tissue Doppler. No pericardial effusion. Image quality was fair. CONCLUSIONS: 1. Moderately dilated left ventricle with severe reduction in overall LV systolic function. LVEF 30% by visual estimate. Multiple regional wall abnormalities. Akinesis at the base on mid inferior segments and akinesis of the mid inferolateral segment. Severe hypokinesis of the basal inferolateral segment. Hyperkinesis to akinesis of the basal intraseptal segment. Normal regional wall motion and wall thickening elsewhere. Grade 1 LV diastolic dysfunction (impaired relaxation filling pattern). 2. Moderately severe left atrial dilatation by left atrial volume index. 3. Normal right ventricle size and systolic function. 4. Suggestive of mild-moderate elevation of estimated right ventricle systolic pressure. 5. Mild aortic valve sclerosis of a three-cuspid aortic valve. Mild aortic regurgitation. Moderate mitral annular calcification. Trace mitral regurgitation.
[2018-11-24 14:00] VITALS: BP 102/57
[2018-11-24] MEDS: LATANOPROST 0.005% OPHTH SOLN 2.5 ML OU SCH (21:00)
[2018-11-24] MEDS: CLOPIDOGREL 75 MG TAB PO SCH (21:17)
[2018-11-24] MEDS: ATORVASTATIN 20 MG TAB PO SCH (21:18)
[2018-11-24 22:00] VITALS: BP 124/57
[2018-11-25 06:00] VITALS: BP 120/64
[2018-11-25] MEDS: LEVOTHYROXINE 50MCG TABLET (0.05MG) PO SCH (06:04)
[2018-11-25] MEDS: LEVEMIR (INSULIN DETEMIR) 1 UNITS/0.01ML SC SCH (08:55)
[2018-11-25] MEDS: ENOXAPARIN 30 MG/0.3 ML SYR (J1650) SC SCH (08:55)
[2018-11-25] MEDS: HumaLOG INSULIN (NovoLOG) PER UNIT SC SCH ×4 (08:55→21:00)
[2018-11-25] MEDS: OMEPRAZOLE 20 MG CAP PO SCH (08:56)
[2018-11-25] MEDS: ISOSORBIDE MON. (IMDUR) 60 MG XR TAB PO SCH (08:56)
[2018-11-25] MEDS: ASPIRIN 81 MG CHEW TABLET PO SCH (08:56)
[2018-11-25] MEDS: FUROSEMIDE 20 MG/2 ML VIAL (J1940) IV SCH (08:56)
[2018-11-25 11:03] LABS: HEMATOCRIT 37.7 % (42.0-52.0); HEMOGLOBIN 12.4 g/dl (13.5-17.5); MEAN CORPUSCULAR HEMOGLOBIN 30.8 pg (27.0-33.0); MEAN CORPUSCULAR HGB CONC 32.9 g/dl (32.0-36.5); MEAN CORPUSCULAR VOLUME 93.5 fl (80.0-96.0); PLATELET COUNT, AUTOMATED 214 10^3/uL (150-450); RED BLOOD COUNT 4.03 10^6/uL (4.30-6.10); WHITE BLOOD COUNT 7.2 10^3/uL (4.0-10.0)
--- NOTE | 2018-11-25 11:05 | IPN ---
DATE OF SERVICE: 11/24/2018 Yefri is seen while rounding for the hospitalists. He is a patient of Dr. Angel Clark in [place]. Also followed by [facility]/Dr. Harry. The patient was admitted with shortness of breath, I suspect, related to some significant systolic congestive heart failure. An echocardiogram done yesterday showed ejection fraction of only 30%, multiple regional wall motion abnormalities noted. He recently underwent stenting in an unspecified coronary artery October of 2018. He previously had stents done in 2010. I reviewed his office space electronic record, particularly the [facility] note from 11/08/2018. They note that his echocardiogram from 11/27 had a normal ejection fraction. He only had mild hypokinesis of several areas. Overall left ventricle systolic function was normal. So, this is significant deterioration. He has had a few Holter monitors done 05/29 and 05/30. He had some bradycardia but no high-grade AV blocks of any kind. Premature ventricular contractions (PVCs) but no sustained arrhythmias. Per Cardiology note, his 04/23 stent was drug-eluting stent to the left anterior descending (LAD); and his 11/04/2018 stent was drug-eluting stent and balloon angioplasty with a small obtuse marginal with stenting of severe LAD stenosis with the drug-eluting stent. PHYSICAL EXAMINATION: 139/63, pulse was 60. General appearance: He is resting comfortably, walking in the examination room, in no distress. HEENT unremarkable. Lungs clear. Heart: Regular rate and rhythm. 1/6 systolic ejection murmur. Abdomen: Soft, nontender. No masses. No peripheral edema. LABORATORIES: He did not have any laboratories ordered for today. None for the past 2 days. Blood sugar was 51 yesterday morning. He does not have his morning blood sugar documented for today. IMPRESSION: 1. Congestive heart failure, reduced ejection fraction, significantly declining ejection fraction from most recent echocardiogram. The patient has been started on Entresto. First dose is tonight. His angiotensin-converting enzyme (KARI) inhibitor has been discontinued. The case discussed with Dr. Harry. He will see the patient in consultation. The patient was requesting to see Dr. Harry. Appreciate his involvement. Continue his Lasix, though we are going to increase the dose. He is only getting 20 mg intravenous (IV) daily; and actually, he is net positive with his input and output to date. Will put him on 40 mg IV every 6 hours as needed to maintain a net diuresis of a liter per day. 2. Hypoglycemia. His insulin doses have been adjusted. Unfortunately, I do not see any recent blood sugars documented. 3. Recent exposure to iodinated contrast material. He needs followup laboratories. He has not had laboratories in 2 days. Will get a complete blood count (CBC) and a basic metabolic profile (BMP) today and then daily while he is here, particularly with starting the Entresto.
[2018-11-25 11:23] LABS: BLOOD UREA NITROGEN 16 MG/DL (7-18); CALCIUM LEVEL 8.4 MG/DL (8.8-10.2); CARBON DIOXIDE LEVEL 32 MEQ/L (21-32); CHLORIDE LEVEL 104 MEQ/L (98-107); GLOMERULAR FILTRATION RATE > 60.0 (>35); GLUCOSE, FASTING 219 MG/DL (70-100); POTASSIUM SERUM 4.4 MEQ/L (3.5-5.1); SODIUM LEVEL 138 MEQ/L (136-145)
[2018-11-25] MEDS ORDERED: FUROSEMIDE 40 MG/4 ML VIAL (J1940) IV SCH (12:00)
[2018-11-25 14:00] VITALS: BP 121/67
[2018-11-25] MEDS: FUROSEMIDE 20 MG TAB PO SCH (17:15)
[2018-11-25] MEDS: ENTRESTO 24-26MG TABLET (SACUBITRIL/VALSARTAN) PO SCH (20:59)
[2018-11-25] MEDS: LATANOPROST 0.005% OPHTH SOLN 2.5 ML OU SCH (21:00)
[2018-11-25] MEDS: ATORVASTATIN 20 MG TAB PO SCH (21:00)
[2018-11-25] MEDS: CLOPIDOGREL 75 MG TAB PO SCH (21:00)
--- NOTE | 2018-11-25 21:13 | CR ---
DATE OF CONSULTATION: 11/25/2018 REASON FOR CONSULTATION/CHIEF COMPLAINT: Acute on chronic systolic and diastolic heart failure. HISTORY OF THE PRESENT ILLNESS: The patient is an 83-year-old male with a past medical history significant for coronary artery disease, status post stent placement with angina and history of bradycardia, presented to the emergency room with chest pain and shortness of breath. 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 He noted that he had discomfort on the left side of his chest. He noted that he became very short of breath at this time, and it came on all of a sudden. The patient was able to sit down and rest and regain his shortness of breath. He has never had shortness of breath like that before but He did have some chest discomfort in the past when he had stent placement in 2010. The patient denies any change in his cough. The patient does have a chronic cough for the last few weeks that happens roughly this time every year. Denies any lower extremity swelling or erythema. Denies any headache, changes in vision, changes in hearing, pins and needles in his hands and legs, neck pain, abdominal pain. Patient had a stent placement 3 weeks ago in [place]. Since then, the patient has been compliant with his Plavix and aspirin. Denies any sharp chest pain since stent placement and denies use of nitroglycerin. The patient did have a stent placed previously back in 2010. During this admission, the patient had an EKG that showed sinus arrhythmia with first-degree atrioventricular (AV) block and bifascicular block. The patient has a history of bifascicular block; however, the first-degree AV block is new. The patient also had a CT of his chest which revealed edema. Echocardiogram revealed reduced ejection fraction that has been changed since previous echo. PAST MEDICAL HISTORY: 1. Coronary artery disease - [place] vessel with angina. 2. Percutaneous coronary intervention (PCI), coronary stents. 3. Ischemic cardiomyopathy. 4. Hyperlipidemia. 5. Bifascicular block. 6. Systemic hypertension. 7. AV block. 8. Hypertensive heart disease. 9. Diabetes. 10. Hyperlipidemia, unspecified. 11. Heartburn. 12. Thyroid disease. 13. Osteoarthritis. MEDICATIONS: The patient is on: - clopidogrel 75 mg daily - aspirin 81 mg daily - atorvastatin 40 mg daily - omeprazole 20 mg daily - Lasix 40 mg IV every 6 hours - Imdur 60 mg daily - insulin Levemir 35 units daily ALLERGIES: No known allergies. SURGERIES: Left rotator cuff repair in 2007. Cardiac stents, most recently 3 weeks ago. Left carpal tunnel surgery. Appendectomy. Bilateral trigger finger. 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 CARDIAC TESTING: Patient's previous echocardiogram from 2017 showed mild hypokinesis of basal inferolateral, inferolateral and inferior LV segments, akinesia of basal inferior LV segment, normal LV wall motion and wall thickening elsewhere. Normal overall LV systolic function. Grade I LV diastolic dysfunction. Mild dilatation of aortic root both at the level of the sinus and proximal ascending aorta. Moderate left atrial dilatation. Suggestive of mild elevation of estimated right ventricular systolic pressure. Echocardiogram 11/24/18 1. Moderately dilated left ventricle with severe reduction in overall LV systolic function. LVEF 30% by visual estimate. Multiple regional wall abnormalities. Akinesis at the base on mid inferior segments and akinesis of the mid inferolateral segment. Severe hypokinesis of the basal inferolateral segment. Hyperkinesis to akinesis of the basal intraseptal segment. Normal regional wall motion and wall thickening elsewhere. Grade 1 LV diastolic dysfunction (impaired relaxation filling pattern). 2. Moderately severe left atrial dilatation by left atrial volume index. 3. Normal right ventricle size and systolic function. 4. Suggestive of mild-moderate elevation of estimated right ventricle systolic pressure. 5. Mild aortic valve sclerosis of a three-cuspid aortic valve. Mild aortic regurgitation. Moderate mitral annular calcification. Trace mitral regurgitation. FAMILY HISTORY: Father had a pacemaker placed at 93 years old, mother diabetic; both . Grandfather: from brain tumor. Brother, 85 years old: Heart disease with a pacemaker. Sister: No current medical problems, healthy. SOCIAL HISTORY: Patient is a nonsmoker. Denies any alcohol or illicit drug use. is . 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 Patient denies any recent travel. Drinks 4-5 cups of coffee a day. Denies any tea use, but does drink a Diet Coke maybe once a month. REVIEW OF SYSTEMS: General: Denies fevers, chills, weight gain, weight loss. HEENT: Denies headache, changes in vision, changes in hearing. Neck: Denies any difficult or painful swallowing. Cardiac: Denies any chest pain today or shortness of breath. Respiratory: Positive for productive cough. Abdomen: Denies any vomiting. Admits to loose bowels a couple of weeks ago that lasted for 5 days and resolved on their own. Urinary: Denies any urinary pain. Admits to urinary frequency and urinary urgency. Neurologic: Denies any changes to numbness, tingling in the hands and feet. Admits to numbness, tingling in right hand, which is chronic. Musculoskeletal: Denies any upper arm or lower leg weakness. Extremities: Denies any lower extremity edema. Endocrine: Denies any night sweats except when patient wakes up coughing. PHYSICAL EXAM: Vital Signs: Temperature 97.9, pulse 71, respiratory rate 18, blood pressure 121/67, pulse oximetry 95% on room air. Appearance: Patient is alert, comfortable, resting, elderly male. No respiratory distress. Able to answer questions appropriately. HEENT: Atraumatic. Extraocular muscles intact. Pupils equal and reactive to light and dilation. Nares patent bilaterally. Neck: Carotid pulse equal bilaterally. No bruits heard to auscultation. Jugular venous distention (JVD) noted 4 cm. Cardiac: S1 normal. No murmurs heard on exam. Regular rate and rhythm. Apical impulse normal. No thrills palpated. No gallops. Respiratory: Mild rales heard lower lung prieto bilaterally. Abdomen: Soft, nondistended. Caput medusae noted upper abdomen. Bowel sounds to auscultation. Lower extremities: Trace pitting edema noted ankles bilaterally. ASSESSMENT AND PLAN: The patient is an 83-year-old male with a past medical history significant for coronary artery disease, coronary stents, ischemic cardiomyopathy, presents with acute on chronic diastolic and systolic heart failure. 1. Acute on chronic systolic and diastolic heart failure. This is likely secondary to patient's ischemic cardiomyopathy. Patient has a history of coronary artery disease with angina and coronary stent placement. Last stent placed was 3 weeks ago. Patient had an echocardiogram on admission that was found to have an EF of 30%. To evaluate why patient has decompensated heart failure the patient will need an outpatient nuclear stress test to fully examine patient's cardiac vessels after recent stent placement. Patient is currently not on beta jon; however, will not start at this time due to a history of sinus node dysfunction and first-degree AV block as contraindications. The patient was on lisinopril prior to admission; however, this will be held and he will be started on Entresto. Consider spironolactone once Entresto has been maximized. This medication will be beneficial for Systolic heart failure. Patient does not quality for implantable cardioverter defibrillator (ICD) at this time due to recent stent placement. Will need to reassess cardiac function in 3 months and reexamine whether the patient needs this placed. If ejection fraction remains less than 35% and his QRS remains greater than or equal to 150 milliseconds in length, will consider that at that time. 2. Coronary artery disease, [place] vessel with angina. Patient is currently on optimized medications with aspirin, Plavix, atorvastatin daily, and Imdur daily. Will need an outpatient nuclear stress as mentioned above. Continue monitoring for symptoms at this time, and continue with current medication regimen. 3. Percutaneous coronary intervention (PCI) coronary stent. See coronary artery disease above. 4. Ischemic cardiomyopathy. Please see coronary artery disease and acute on chronic systolic and diastolic heart failure above. 5. Hyperlipidemia, unspecified. Continue atorvastatin at this time. 6. Systemic hypertension. Continue patient on medications noted above for acute on chronic heart failure. Monitor patient's vital signs as needed. 7. Bifascicular block. Patient has history of. Continue cardiac monitoring. 8. Bradycardia/sinus node dysfunction. Patient has history of. Holding on starting beta jon at this time. 9. First degree AV block. New on EKG in ER. Continue monitoring at this time. 10. Abnormal EKG. See bifasicular block and sinus node dysfunction above. 11. Hypertensive heart disease. Patient has left ventricular hypertrophy (LVH) noted on EKG; it is likely secondary to hypertensive heart disease. Continue to manage hypertension as noted above. My faculty preceptor for this patient encounter was physically present during the encounter and was fully available. All aspects of the patient interview, examination, medical decision making process, and medical care plan development were reviewed and approved by the faculty preceptor. The faculty preceptor is aware and concurs with the plan as stated in the body of this note and will attest to such by his/her co-signature. SANDHYA
[2018-11-25 22:00] VITALS: BP 134/69
[2018-11-26] MEDS: LEVOTHYROXINE 50MCG TABLET (0.05MG) PO SCH (05:53)
[2018-11-26 06:00] VITALS: BP 116/64
[2018-11-26 06:08] LABS: HEMATOCRIT 39.3 % (42.0-52.0); HEMOGLOBIN 12.9 g/dl (13.5-17.5); MEAN CORPUSCULAR HEMOGLOBIN 30.2 pg (27.0-33.0); MEAN CORPUSCULAR HGB CONC 32.8 g/dl (32.0-36.5); PLATELET COUNT, AUTOMATED 211 10^3/uL (150-450); RED BLOOD COUNT 4.27 10^6/uL (4.30-6.10); WHITE BLOOD COUNT 7.1 10^3/uL (4.0-10.0)
[2018-11-26 06:29] LABS: BLOOD UREA NITROGEN 16 MG/DL (7-18); CALCIUM LEVEL 8.3 MG/DL (8.8-10.2); CARBON DIOXIDE LEVEL 30 MEQ/L (21-32); CHLORIDE LEVEL 106 MEQ/L (98-107); CREATININE FOR GFR 0.99 MG/DL (0.70-1.30); GLOMERULAR FILTRATION RATE > 60.0 (>35); GLUCOSE, FASTING 151 MG/DL (70-100); POTASSIUM SERUM 4.1 MEQ/L (3.5-5.1); SODIUM LEVEL 140 MEQ/L (136-145)
[2018-11-26] MEDS: FUROSEMIDE 20 MG TAB PO SCH ×2 (08:50→17:08)
[2018-11-26] MEDS: HumaLOG INSULIN (NovoLOG) PER UNIT SC SCH ×4 (08:50→20:45)
[2018-11-26] MEDS: ASPIRIN 81 MG CHEW TABLET PO SCH (08:52)
[2018-11-26] MEDS: OMEPRAZOLE 20 MG CAP PO SCH (08:52)
[2018-11-26] MEDS: ISOSORBIDE MON. (IMDUR) 60 MG XR TAB PO SCH (08:52)
[2018-11-26] MEDS: ENTRESTO 24-26MG TABLET (SACUBITRIL/VALSARTAN) PO SCH ×2 (08:52→20:50)
[2018-11-26] MEDS: ENOXAPARIN 30 MG/0.3 ML SYR (J1650) SC SCH (08:53)
[2018-11-26] MEDS: LEVEMIR (INSULIN DETEMIR) 1 UNITS/0.01ML SC SCH (08:53)
[2018-11-26 14:00] VITALS: BP 109/62
[2018-11-26] MEDS: CLOPIDOGREL 75 MG TAB PO SCH (20:50)
[2018-11-26] MEDS: ATORVASTATIN 20 MG TAB PO SCH (20:50)
[2018-11-26] MEDS: LATANOPROST 0.005% OPHTH SOLN 2.5 ML OU SCH (20:51)
[2018-11-26 22:00] VITALS: BP 114/63
[2018-11-27 06:00] VITALS: BP 124/72
[2018-11-27] MEDS: LEVOTHYROXINE 50MCG TABLET (0.05MG) PO SCH (06:31)
[2018-11-27 06:44] LABS: HEMATOCRIT 43.9 % (42.0-52.0); HEMOGLOBIN 14.4 g/dl (13.5-17.5); MEAN CORPUSCULAR HEMOGLOBIN 30.8 pg (27.0-33.0); MEAN CORPUSCULAR HGB CONC 32.8 g/dl (32.0-36.5); PLATELET COUNT, AUTOMATED 239 10^3/uL (150-450); RED BLOOD COUNT 4.67 10^6/uL (4.30-6.10); WHITE BLOOD COUNT 5.3 10^3/uL (4.0-10.0)
[2018-11-27 07:08] LABS: BLOOD UREA NITROGEN 19 MG/DL (7-18); CALCIUM LEVEL 8.7 MG/DL (8.8-10.2); CARBON DIOXIDE LEVEL 32 MEQ/L (21-32); CHLORIDE LEVEL 106 MEQ/L (98-107); CREATININE FOR GFR 1.04 MG/DL (0.70-1.30); GLOMERULAR FILTRATION RATE > 60.0 (>35); GLUCOSE, FASTING 130 MG/DL (70-100); POTASSIUM SERUM 4.2 MEQ/L (3.5-5.1); SODIUM LEVEL 141 MEQ/L (136-145)
[2018-11-27 08:21] VITALS: BP 130/64
[2018-11-27] MEDS: OMEPRAZOLE 20 MG CAP PO SCH (08:21)
[2018-11-27] MEDS: ASPIRIN 81 MG CHEW TABLET PO SCH (08:21)
[2018-11-27] MEDS: ISOSORBIDE MON. (IMDUR) 60 MG XR TAB PO SCH (08:21)
[2018-11-27] MEDS: ENTRESTO 24-26MG TABLET (SACUBITRIL/VALSARTAN) PO SCH (08:21)
[2018-11-27] MEDS: FUROSEMIDE 20 MG TAB PO SCH (08:21)
[2018-11-27] MEDS: ENOXAPARIN 30 MG/0.3 ML SYR (J1650) SC SCH (08:22)
[2018-11-27] MEDS: LEVEMIR (INSULIN DETEMIR) 1 UNITS/0.01ML SC SCH (08:22)
[2018-11-27] MEDS: HumaLOG INSULIN (NovoLOG) PER UNIT SC SCH ×2 (08:23→11:48)
[2018-11-27] MEDS ORDERED: ISOS60TA2 PO ×2 (10:39→10:47)
[2018-11-27] MEDS ORDERED: ENTR1TAB PO ×2 (10:39→10:47)
[2018-11-27] MEDS ORDERED: FURO20TA2 PO ×2 (10:39→10:47)
--- NOTE | 2018-11-27 13:05 | IPNPDOC ---
Text Note Date of Service The patient was seen on 11/27/18. NOTE Subjective: Patient seen and examined at bedside. No acute overnight events r eported. Patient does complain of mild dyspnea on exertion. Objective: General: NAD, lying comfortably in bed HEENT: NC/AT, EOMI Lungs: CTA B/L Heart: +S1S2, RRR, systolic murmur Abd: soft, NT, +BS Ext: no edema IMPRESSION: # HFrEF - 30% LVEF - cardiology c/s appreciated - started on Entresto - continuing lasix # Hypoglycemia - appears to have resolved #CAD s/p #stents with LAD disease #HTN #SCC/BCC #hypothyroid VS,Fishbone, I+O VS, Fishbone, I+O Laboratory Tests 11/27/18 06:03 Red Blood Count 4.67, Mean Corpuscular Volume 94.0, Mean Corpuscular Hemoglobin 30.8, Mean Corpuscular Hemoglobin Concent 32.8, Red Cell Distribution Width 13.5, Calcium Level 8.7 L Vital Signs Date Time Temp Pulse Resp B/P (MAP) Pulse Ox O2 Delivery O2 Flow Rate FiO2 11/27/18 08:21 130/64 11/27/18 06:00 98.2 99 19 96 11/23/18 04:17 Room Air I&O- Last 24 Hours up to 6 AM 11/27/18 06:00 Intake Total 1776 ml Output Total 2750 ml Balance -974 ml SILVIA HAMILTON MD Nov 27, 2018 13:04
--- NOTE | 2018-11-27 13:11 | DS.PDOC ---
Discharge Summary General Date of Admission Nov 23, 2018 at 03:08 Date of Discharge 11/27/18 Attending Physician: A Specialist/Consultants Involve: Ramon Harry Discharge Summary PROCEDURES PERFORMED DURING STAY: [None]. ADMITTING DIAGNOSES: 1. Decompensated congestive heart failure 2. heart failure with reduced ejection fraction SECONDARY DIAGNOSES: #CAD s/p angioplasty and stent on november 03 2018 #Diabetes #Hypertension #Bradycardia #HYPERLIPIDEMIA #HISTORY OF SCC LEFT LOWER CALF 05/20 & RIGHT WRIST 06/20 #OSTEOPOROSIS #BCC- RIGHT EAR 10/28 #Hypothyroid COMPLICATIONS/CHIEF COMPLAINT: Coronary Artery Disease. HISTORY OF PRESENT ILLNESS: 83 year old male with PMH of CAD s/p stents in 2010 and another stent in october 2018, Diabetes, hypothyroid, hypertension, hyperlipidemia, GERD, bradycardia presented to the ED with complaints of exertional dyspnea slowly worsening over the past 1 week. 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 He wanted to walk to the barn to check on an animal and could hardly making it there for SOB so came to the ED for evaluation. HOSPITAL COURSE: Patient diagnosed with congestive heart failure with reduced ejection fraction. Seen by cardiology, started Entresto and diuretic therapy. Patient's symptoms significantly improved. Seen by PT. Cleared by PT and cardiology, with o/p f/u with Dr. Lyons. DISCHARGE MEDICATIONS: Please see below. ALLERGIES: Please see below. PHYSICAL EXAMINATION ON DISCHARGE: VITAL SIGNS: Please see below. GENERAL: NAD HEENT: NC/AT NECK: supple CARDIOVASCULAR EXAMINATION: +S1S2, RRR RESPIRATORY EXAMINATION: CTA B/L ABDOMINAL EXAMINATION: soft, NT, +BS EXTREMITIES: no edema ACTIVITY: [As tolerated]. DIET: DASH diet DISCHARGE PLAN: Discharge home with services if indicated DISCHARGE INSTRUCTIONS: 1. Follow up with cardiology in 3-10 days or as scheduled by geospatial specialist. 2. Follow up with PCP in 3-10 days. DISCHARGE CONDITION: [Stable]. TIME SPENT ON DISCHARGE: Greater than 30 minutes. Vital Signs/I&Os Vital Signs Date Time Temp Pulse Resp B/P (MAP) Pulse Ox O2 Delivery O2 Flow Rate FiO2 11/27/18 08:21 130/64 11/27/18 06:00 98.2 99 19 96 11/23/18 04:17 Room Air I&O- Last 24 Hours up to 6 AM 11/27/18 06:00 Intake Total 1776 ml Output Total 2750 ml Balance -974 ml Laboratory Data Labs 24H Laboratory Tests 2 11/26/18 20:27: Bedside Glucose (Misc Panel) 183H 11/27/18 06:03: Nucleated Red Blood Cells % (auto) 0.0, Anion Gap 3L, Glomerular Filtration Rate > 60.0, Blood Urea Nitrogen 19H, Creatinine 1.04, Sodium Level 141, Potassium Level 4.2, Chloride Level 106, Carbon Dioxide Level 32, Calcium Level 8.7L CBC/BMP Laboratory Tests 11/27/18 06:03 Red Blood Count 4.67, Mean Corpuscular Volume 94.0, Mean Corpuscular Hemoglobin 30.8, Mean Corpuscular Hemoglobin Concent 32.8, Red Cell Distribution Width 13.5, Calcium Level 8.7 L FSBS Laboratory Tests Test 11/26/18 20:27 Range/Units Bedside Glucose (Misc Panel) 183 83-110 MG/DL Discharge Medications Scheduled Aspirin (Aspirin EC) 81 Mg Tab, 81 MG PO DAILY, (Reported) Atorvastatin Calcium (Atorvastatin Calcium) 40 Mg Tablet, 40 MG PO QHS, (Reported) Brinzolamide (Azopt) 10 Ml Drops.susp, 1 DROP OU DAILY, (Reported) Clopidogrel Bisulfate (Clopidogrel) 75 Mg Tablet, 75 MG PO QPM, (Reported) Furosemide (Furosemide) 20 Mg Tablet, 20 MG PO BID@ Insulin Glargine,Hum.rec.anlog (Lantus Solostar) 100 Unit/Ml Inj, 40 UNITS SQ DAILY, (Reported) Insulin Lispro (Humalog Kwikpen U-100) 100 Unit/Ml Inj, 1 DOSE SQ ACHS, (Reported) PER SLIDING SCALE Isosorbide Mononitrate (Isosorbide Mononitrate ER) 60 Mg Tab.er.24h, 60 MG PO DAILY Latanoprost (Xalatan) 2.5 Ml Drops, 1 DROP OU QHS, (Reported) Levothyroxine Sodium (Levothyroxine Sodium) 50 Mcg Tablet, 50 MCG PO QAM, (Reported) Metformin HCl (Metformin HCl) 1,000 Mg Tab, 1,000 MG PO BID, (Reported) Omeprazole (Omeprazole) 20 Mg Cap, 20 MG PO DAILY, (Reported) Sacubitril/Valsartan (Entresto 24 mg-26 mg Tablet) 1 Each Tablet, 1 TAB PO BID Vitamin A Palmitate (Vitamin A) 10,000 Unit Capsule, 10,000 UNIT PO DAILY, (Reported) Scheduled PRN Cyclosporine (Restasis) 1 Each Droperette, 1 DROP OU BID PRN for DRY EYES, (Reported) Nitroglycerin (Nitroglycerin) 0.4 Mg Tab.subl, 0.4 MG PO Q5MP PRN for CHEST PAIN, (Reported) Allergies Coded Allergies: No Known Allergies (Unverified , 11/02/18) SILVIA HAMILTON MD Nov 27, 2018 13:11
== END 2018-11-27 13:59 | disposition home or self-care (01) | DRG 292 ==
LOC: M ED 18:43 → M ED INP 11-23 03:08 → M MSPAV 11-23 04:30
PROVIDERS: ADMIT Internal Medicine Nephrology; ATTEND Internal Medicine
DX: I11.0 Hypertensive heart disease with heart failure (principal); I47.2 Ventricular tachycardia; I45.2 Bifascicular block; I25.119 Atherosclerotic heart disease of native coronary artery with unspecified angina pectoris; I50.43 Acute on chronic combined systolic (congestive) and diastolic (congestive) heart failure; R00.1 Bradycardia, unspecified; E11.649 Type 2 diabetes mellitus with hypoglycemia without coma; E03.9 Hypothyroidism, unspecified; Z95.2 Presence of prosthetic heart valve; M81.0 Age-related osteoporosis without current pathological fracture; Z85.828 Personal history of other malignant neoplasm of skin; E78.5 Hyperlipidemia, unspecified; Z79.899 Other long term (current) drug therapy; Z79.82 Long term (current) use of aspirin; K21.9 Gastro-esophageal reflux disease without esophagitis; M19.90 Unspecified osteoarthritis, unspecified site; I44.0 Atrioventricular block, first degree

== ENCOUNTER 2018-12-23 13:25 | Emergency (ER) | payer MEDICARE, OTHER ==
[~2018-12-23] VITALS: Ht 180.3 cm; Wt 38.2 kg
[~2018-12-23 13:25] MED LIST changes: +ATOR40TA75 PO; +AZOP0.2S OU; +CLOP75TA2 PO; +ENTR1TAB PO; +FURO20TA2 PO; +ISOS60TA2 PO; +LATANOPROST; +LISI-1046 PO; +NITR0.4S14 PO; +REST0.05 OU; +VITA1CAP21 PO; +XALA0.007 OU
[2018-12-23 14:05] LABS: BASO % 0.3 % (0.0-1.0); EOS # 0.1 10^3/uL (0.0-0.50); EOS % 1.1 % (0.0-3.0); HEMATOCRIT 40.8 % (42.0-52.0); HEMOGLOBIN 13.5 g/dl (13.5-17.5); LYMPH # 1.6 10^3/uL (1.5-4.5); LYMPH % 24.8 % (24.0-44.0); MEAN CORPUSCULAR HEMOGLOBIN 31.3 pg (27.0-33.0); MEAN CORPUSCULAR HGB CONC 33.1 g/dl (32.0-36.5); MEAN CORPUSCULAR VOLUME 94.7 fl (80.0-96.0); MONO # 0.5 10^3/uL (0.0-0.8); MONO % 7.3 % (0.0-5.0); NEUTROPHILS # 4.4 10^3/uL (1.8-7.7); NEUTROPHILS % 66.2 % (36.0-66.0); PLATELET COUNT, AUTOMATED 228 10^3/uL (150-450); RED BLOOD COUNT 4.31 10^6/uL (4.30-6.10); WHITE BLOOD COUNT 6.6 10^3/uL (4.0-10.0)
[2018-12-23] MEDS ORDERED: AMIODARONE 200 MG TAB (PACERONE) PO ONE (14:30)
--- NOTE | 2018-12-23 14:50 | REP ---
Portable chest x-ray: Single view. History: Chest pain. Comparison chest x-ray: November 22, 2018. Findings: There is minimal linear fibrosis in the left base. The lungs are otherwise well inflated and clear. Heart size is normal. Pulmonary vasculature is not increased. EKG monitoring electrodes overlie the chest. Impression: Linear fibrosis left base. Otherwise no acute disease. Electronically Signed by Rikki Adams MD 12/23/2018 07:32 P
[2018-12-23 14:51] LABS: CALCIUM LEVEL 9.2 MG/DL (8.8-10.2); CREATININE FOR GFR 1.34 MG/DL (0.70-1.30); FREE T4 0.93 NG/DL (0.76-1.46); GLOMERULAR FILTRATION RATE 54.1 (>35); MAGNESIUM LEVEL 1.8 MG/DL (1.8-2.4); MB/CK RELATIVE INDEX 1.92 (< OR =4); POTASSIUM SERUM 4.8 MEQ/L (3.5-5.1); THYROID STIMULATING HORMONE 2.13 uIU/ML (0.358-3.740); TROPONIN I 0.05 NG/ML (< 0.10)
[2018-12-23] MEDS ORDERED: MAG SULF 1GM/100ML (MAG RUN) 1 GM in APPROPRIATE DILUENT 1 EA IV ONE (15:15)
--- NOTE | 2018-12-23 15:40 | ECGEPIP ---
Stationary ECG Study 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
[2018-12-23] MEDS ORDERED: AMIO200T PO (17:15)
[2018-12-23 17:53] VITALS: BP 123/59
== END 2018-12-23 18:05 | disposition home or self-care (01) ==
LOC: M ED 13:25
DX: I49.3 Ventricular premature depolarization (principal)
CPT/HCPCS: 71045; 80048; 82550; 82553; 83735; 84439; 84443; 84484; 85025; 93005; 93041; 94760; 96365; 96367; 99285; J3475

== ENCOUNTER 2019-02-23 15:57 | Observation (INO) | payer MEDICARE, OTHER ==
[~2019-02-23] VITALS: Ht 180.3 cm; Wt 81.4 kg
[~2019-02-23 15:57] MED LIST changes: +AMIO200T PO; -OMEP20CA3 PO; +OMEP20CA4 PO
--- NOTE | 2019-02-23 16:49 | REP ---
Chest x-ray: Two views. History: Syncope. Comparison chest x-ray: December 23, 2018. Findings: A multi lead pacemaker is been inserted in the interval since the December 23, 2018 study. Heart size is borderline. Coronary artery stent material is visible. Pleural angles are sharp. Pulmonary vasculature is not increased. Lung prieto are clear. No infiltrate is seen. Impression: Status post pacemaker. Borderline heart size. Coronary artery stents visible. Otherwise no acute disease. Electronically Signed by Rikki Adams MD 02/23/2019 04:41 P
[2019-02-23 17:21] LABS: BASO % 0.5 % (0.0-1.0); EOS # 0.1 10^3/uL (0.0-0.50); EOS % 0.8 % (0.0-3.0); HEMATOCRIT 34.1 % (42.0-52.0); HEMOGLOBIN 11.6 g/dl (13.5-17.5); LYMPH # 1.4 10^3/uL (1.5-4.5); LYMPH % 16.2 % (24.0-44.0); MEAN CORPUSCULAR HEMOGLOBIN 32.3 pg (27.0-33.0); MONO # 0.7 10^3/uL (0.0-0.8); MONO % 7.8 % (0.0-5.0); NEUTROPHILS # 6.2 10^3/uL (1.8-7.7); NEUTROPHILS % 73.9 % (36.0-66.0); PLATELET COUNT, AUTOMATED 296 10^3/uL (150-450); RED BLOOD COUNT 3.59 10^6/uL (4.30-6.10); WHITE BLOOD COUNT 8.3 10^3/uL (4.0-10.0)
[2019-02-23 17:25] LABS: INR 1.08; PROTHROMBIN TIME 13.7 SECONDS (11.8-14.0)
[2019-02-23 17:26] LABS: PARTIAL THROMBOPLASTIN TIME 27.2 SECONDS (25.0-38.4)
[2019-02-23 17:46] LABS: BLOOD UREA NITROGEN 17 MG/DL (7-18); CALCIUM LEVEL 8.6 MG/DL (8.8-10.2); CARBON DIOXIDE LEVEL 29 MEQ/L (21-32); CHLORIDE LEVEL 102 MEQ/L (98-107); CK-MB VALUE MASS 2.2 NG/ML (<3.6); CPK CREATINE PHOSPHOKINASE 128 U/L (39-308); FREE T4 1.02 NG/DL (0.76-1.46); GLOMERULAR FILTRATION RATE > 60.0 (>35); GLUCOSE, FASTING 260 MG/DL (70-100); MAGNESIUM LEVEL 1.8 MG/DL (1.8-2.4); MB/CK RELATIVE INDEX 1.72 (< OR =4); SODIUM LEVEL 138 MEQ/L (136-145); TROPONIN I < 0.02 NG/ML (< 0.10)
[2019-02-23] MEDS ORDERED: NS 1,000 ML IV ONE (19:15)
[2019-02-23] MEDS ORDERED: ACETAMINOPHEN TAB 650MG DOSE (2X325MG) PO PRN (20:00)
[2019-02-23] MEDS ORDERED: GLUCAGON FOR INJ 1 MG VIAL (J1610) SC PRN (20:00)
[2019-02-23] MEDS ORDERED: GLUCOSE 4 GM CHEW TABLET PO PRN (20:00)
[2019-02-23] MEDS ORDERED: DEXTROSE 50% 50 ML SYRINGE IV PRN (20:00)
[2019-02-23] MEDS ORDERED: FURO20TA2 PO (20:03)
[2019-02-23] MEDS ORDERED: ISOS60TA2 PO (20:03)
[2019-02-23] MEDS ORDERED: ENTR1TAB PO (20:03)
[2019-02-23] MEDS: HumaLOG INSULIN (NovoLOG) PER UNIT SC SCH (21:00)
--- NOTE | 2019-02-23 21:17 | HPEPDOC ---
General Date of Admission Feb 23, 2019 at 19:47 Date of Service: Feb 23, 2019 Chief Complaint The patient is a 83-year-old male admitted with a reason for visit of Syncope. History of Present Illness 83 year old male with PMH of CAD s/p stents in 2010 and another stent in october 2018, Diabetes, hypothyroid, hypertension, hyperlipidemia, GERD, Diastolic and Systolic CHF with an LVEF of 30% s/p AICD presents to the ER for the chief complaint of a syncopal episode. The patient states that he has been feeling lightheaded when moving from a sitting to a standing position over the last several days. This afternoon, the patient states that he got up from a chair and was walking towards his daughter when he fell due to lightheadedness. He denied any prodromal symptoms of chest pain, palpitations, shortness of breath, or abdominal discomfort. He denies noticing any shocking from his defibrillating de vice. He also denies any recent fevers, chills, orthopnea, PND, or any other acute complaints. In the ER, the patient's lab work and cardiac workup has been relatively unremarkable. He will be admitted for observation for further evaluation and management. Home Medications Scheduled Aspirin (Aspirin EC) 81 Mg Tab, 81 MG PO DAILY, (Reported) Atorvastatin Calcium (Atorvastatin Calcium) 40 Mg Tablet, 40 MG PO QHS, (Reported) Brinzolamide (Azopt) 10 Ml Drops.susp, 1 DROP OU DAILY, (Reported) Clopidogrel Bisulfate (Clopidogrel) 75 Mg Tablet, 75 MG PO QPM, (Reported) Furosemide (Furosemide) 20 Mg Tablet, 20 MG PO BID, (Reported) Insulin Glargine,Hum.rec.anlog (Lantus Solostar) 100 Unit/Ml Inj, 40 UNITS SQ DAILY, (Reported) Insulin Lispro (Humalog Kwikpen U-100) 100 Unit/Ml Inj, 1 DOSE SQ ACHS, (Reported) PER SLIDING SCALE Isosorbide Mononitrate (Isosorbide Mononitrate ER) 60 Mg Tab.er.24h, 60 MG PO DAILY, (Reported) Latanoprost (Xalatan) 2.5 Ml Drops, 1 DROP OU QHS, (Reported) Levothyroxine Sodium (Levothyroxine Sodium) 50 Mcg Tablet, 50 MCG PO QAM, (Reported) Metformin HCl (Metformin HCl) 1,000 Mg Tab, 1,000 MG PO BID, (Reported) Omeprazole (Omeprazole) 20 Mg Cap, 20 MG PO DAILY, (Reported) Sacubitril/Valsartan (Entresto 24 mg-26 mg Tablet) 1 Each Tablet, 1 TAB PO BID, (Reported) Vitamin A Palmitate (Vitamin A) 10,000 Unit Capsule, 10,000 UNIT PO DAILY, (Reported) Scheduled PRN Cyclosporine (Restasis) 1 Each Droperette, 1 DROP OU BID PRN for DRY EYES, (Reported) Nitroglycerin (Nitroglycerin) 0.4 Mg Tab.subl, 0.4 MG PO Q5MP PRN for CHEST P AIN, (Reported) Allergies Coded Allergies: No Known Allergies (Unverified , 11/02/18) Past Medical History Medical History As noted in HPI. Surgical History LEFT SHOULDER ROTATOR CUFF REPAIR 09/19 3 CARDIAC STENTS PLACED 04/13/11 LEFT WRIST CARPAL TUNNEL APPENDECTOMY BILATERAL TRIGGER FINGER CARDIAC STENT X1 AND ANGIOPLASTY X 1 10/2018 Review of Systems Other systems 10 point review of systems negative unless otherwise specified in HPI. Physical Examination General Exam: Positive: Alert, Cooperative, No Acute Distress ENT Exam: Positive: Atraumatic, Mucous membr. moist/pink Neck Exam: Negative: JVD Chest Exam: Positive: Clear to auscultation, Normal air movement Heart Exam: Positive: Rate Normal, Normal S1, Normal S2 Abdomen Exam: Positive: Soft; Negative: Tenderness Extremity Exam: Negative: Tenderness, Swelling Psych Exam: Positive: Oriented x 3 Vital Signs Vital Signs Date Time Temp Pulse Resp B/P (MAP) Pulse Ox O2 Delivery O2 Flow Rate FiO2 02/23/19 20:31 114/68 (83) 02/23/19 20:30 69 97 02/23/19 20:00 16 02/23/19 18:15 Room Air 02/23/19 16:23 97.8 Laboratory Data Labs 24H Laboratory Tests 2 02/23/19 16:34: Immature Granulocyte % (Auto) 0.8, White Blood Count 8.3, Red Blood Count 3.59L, Hemoglobin 11.6L, Hematocrit 34.1L, Mean Corpuscular Volume 95.0, Mean Corpuscular Hemoglobin 32.3, Mean Corpuscular Hemoglobin Concent 34.0, Red Cell Distribution Width 13.7, Platelet Count 296, Neutrophils (%) (Auto) 73.9H, Lymphocytes (%) (Auto) 16.2L, Monocytes (%) (Auto) 7.8H, Eosinophils (%) (Auto) 0.8, Basophils (%) (Auto) 0.5, Neutrophils # (Auto) 6.2, Lymphocytes # (Auto) 1.4L, Monocytes # (Auto) 0.7, Eosinophils # (Auto) 0.1, Basophils # (Auto) 0.0, Nucleated Red Blood Cells % (auto) 0.0, Prothrombin Time 13.7, Prothromb Time International Ratio 1.08, Activated Partial Thromboplast Time 27.2, Anion Gap 7L , Glomerular Filtration Rate > 60.0, Blood Urea Nitrogen 17, Creatinine 1.10, Sodium Level 138, Potassium Level 4.0, Chloride Level 102, Carbon Dioxide Level 29, Calcium Level 8.6L, Total Creatine Kinase 128, Magnesium Level 1.8, Creatine Kinase MB 2.2, Creatine Kinase MB Relative Index 1.72, Troponin I < 0.02, Thyroid Stimulating Hormone (TSH) 2.830, Free Thyroxine 1.02 CBC/BMP Laboratory Tests 02/23/19 16:34 Red Blood Count 3.59 L, Mean Corpuscular Volume 95.0, Mean Corpuscular Hemoglobin 32.3, Mean Corpuscular Hemoglobin Concent 34.0, Red Cell Distribution Width 13.7, Neutrophils (%) (Auto) 73.9 H, Lymphocytes (%) (Auto) 16.2 L, Monocytes (%) (Auto) 7.8 H, Eosinophils (%) (Auto) 0.8, Basophils (%) (Auto) 0.5, Neutrophils # (Auto) 6.2, Lymphocytes # (Auto) 1.4 L, Monocytes # (Auto) 0.7, Eosinophils # (Auto) 0.1, Basophils # (Auto) 0.0, Calcium Level 8.6 L, Total Creatine Kinase 128 Plan / VTE VTE Prophylaxis Ordered?: Yes Plan Plan Syncopal Episode likely 2/[address] Head, C-Spine with no acute findings EKG revealed paced rhythm 2D ECHO done from 11/2018 noted, 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 We will monitor the patient on telemetry Orthostatic vitals ordered Patient counseled on the need to slowly transition from recumbent to sitting to standing positions given his underlying heart failure, and use of antihypertensives/diuretics. Physical therapy ordered Hx of CAD s/p stents, Systolic and Diastolic CHF s/p AICD Cont regimen as ordered Follows with Dr. Harry as outpatient If these episodes recur, interrogation of AICD may be warranted. Diabetes Mellitus Cont Levemir, ISS as ordered Hypothyroidism Continue levothyroxine GERD Continue PPI Dyslipidemia Continue statin Hypertension Continue regimen as ordered DVT prophylaxis Lovenox subcutaneous JER VILLATORO MD Feb 23, 2019 21:17
[2019-02-24] MEDS: FUROSEMIDE 20 MG TAB PO SCH ×3 (00:09→21:08)
[2019-02-24] MEDS: ENTRESTO 24-26MG TABLET (SACUBITRIL/VALSARTAN) PO SCH ×3 (00:09→21:07)
[2019-02-24] MEDS: CLOPIDOGREL 75 MG TAB PO SCH ×2 (00:09→21:07)
[2019-02-24] MEDS: ATORVASTATIN 20 MG TAB PO SCH ×2 (00:10→21:07)
[2019-02-24] MEDS: LATANOPROST 0.005% OPHTH SOLN 2.5 ML OU SCH ×2 (00:10→21:07)
[2019-02-24] MEDS: ENOXAPARIN 40 MG/0.4 ML SYRINGE (J1650) SC SCH ×2 (00:10→21:08)
[2019-02-24] MEDS: LEVOTHYROXINE 50MCG TABLET (0.05MG) PO SCH (06:06)
[2019-02-24 06:11] LABS: HEMATOCRIT 34.9 % (42.0-52.0); HEMOGLOBIN 11.5 g/dl (13.5-17.5); MEAN CORPUSCULAR HEMOGLOBIN 30.7 pg (27.0-33.0); MEAN CORPUSCULAR VOLUME 93.3 fl (80.0-96.0); PLATELET COUNT, AUTOMATED 281 10^3/uL (150-450); RED BLOOD COUNT 3.74 10^6/uL (4.30-6.10); WHITE BLOOD COUNT 8.3 10^3/uL (4.0-10.0)
[2019-02-24 06:37] LABS: ALT/SGPT 21 U/L (12-78); BILIRUBIN,TOTAL 0.7 MG/DL (0.2-1.0); BLOOD UREA NITROGEN 12 MG/DL (7-18); CALCIUM LEVEL 8.4 MG/DL (8.8-10.2); CARBON DIOXIDE LEVEL 32 MEQ/L (21-32); CHLORIDE LEVEL 104 MEQ/L (98-107); CREATININE FOR GFR 1.09 MG/DL (0.70-1.30); GLOMERULAR FILTRATION RATE > 60.0 (>35); GLUCOSE, FASTING 208 MG/DL (70-100); MAGNESIUM LEVEL 1.7 MG/DL (1.8-2.4); POTASSIUM SERUM 4.3 MEQ/L (3.5-5.1); SODIUM LEVEL 140 MEQ/L (136-145); TOTAL PROTEIN 6.5 GM/DL (6.4-8.2)
--- NOTE | 2019-02-24 08:16 | REP ---
CT BRAIN WITHOUT CONTRAST: HISTORY: Syncope. Injury in a fall. No comparison brain CT. FINDINGS: Preliminary digital manager inpatient views are unremarkable. The bony calvarium is intact. No skull fracture or scalp hematoma is appreciated. Vascular calcification is noted in the distal carotid arteries. There is nearly complete opacification of the right maxillary sinus and partial opacification is seen in several left ethmoid sinuses. No intraorbital abnormality is seen. On soft tissue window settings, there is moderate diffuse generalized atrophy. There is a small area of encephalomalacia in the right posterior frontal lobe consistent with an old cortical infarct. There is another small area of encephalomalacia in the right parietal lobe. No acute infarction is seen. No intracranial hemorrhage is observed. No mass or midline shift. 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 Diffuse moderate atrophy. Small vessel changes and vascular calcification. No acute intracranial abnormality. Electronically Signed by Rikki Adams MD 02/24/2019 08:41 A
--- NOTE | 2019-02-24 08:16 | REP ---
CT study of the cervical spine without contrast: History: Syncope, a fall. Technique: Helical scanning is acquired and overlapping 2 mm high resolution axial images were generated and reviewed at bone and soft tissue window settings. Coronal and sagittal multiplanar re-formations images are generated. CT findings: There is no evidence of cervical spine element fracture. No skull base fracture is seen. Cervical vertebral body heights are preserved. Alignment is normal. Facet joints are normally aligned bilaterally at each cervical level on multiplanar re-formations images. There is no evidence of intraspinal or paraspinal hematoma. No extra vertebral abnormality is seen. There is moderate degenerative spondylosis in the cervical spine with degenerative disc narrowing, posterior osteophytic ridging, and disc calcification at multiple levels. There is vacuum phenomenon at C6-7 disc. 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 This is most pronounced on the left C4-5 and C5-6. Impression: Moderate degenerative spondylosis changes in the cervical spine. Otherwise negative CT study of the cervical spine without contrast. No fracture seen. Electronically Signed by Rikki Adams MD 02/24/2019 08:41 A
[2019-02-24] MEDS: OMEPRAZOLE 20 MG CAP PO SCH (08:23)
[2019-02-24] MEDS: ASPIRIN 81 MG ENTERIC TAB PO SCH (08:23)
[2019-02-24] MEDS: HumaLOG INSULIN (NovoLOG) PER UNIT SC SCH ×4 (08:24→21:00)
[2019-02-24] MEDS: LEVEMIR (INSULIN DETEMIR) 1 UNITS/0.01ML SQ SCH (08:24)
[2019-02-24] MEDS ORDERED: ISOSORBIDE MON. (IMDUR) 60 MG XR TAB PO SCH (09:00)
--- NOTE | 2019-02-24 10:17 | IPN ---
DATE: 02/24/2019 Yefri is seen in the emergency room in an interim bed status. He was admitted with syncope, probably orthostatic in nature. There has been no recurrence during this hospitalization. Systolic pressure is still in the 90s. He said that he was feeling dizzy, weak and lightheaded for the better part of the week when he was outside working in the particular weather in the past week, which might have contributed. PHYSICAL EXAMINATION: Systolic pressure is 90 to 100. He is alert, conversant, no distress. LUNGS: Clear. HEART: Regular rhythm. ABDOMEN: Soft, nontender. No peripheral edema. NEUROLOGIC: Nonfocal. LABORATORIES: Electrolytes are all unremarkable. Renal function is normal. Telemetry has shown paced rhythm. IMPRESSION: 1. Syncope, probably orthostatic in nature. I contracted [facility], I would like Dr. Enrique to come by and interrogate the pacemaker. Pressures are still a bit soft. I am going to reduce the dose of his nitrates. Reduce the Imdur from 60 mg daily to [address] Enrique called and we discussed the case. He will interrogate the patient's ICD.
[2019-02-24 15:00] VITALS: BP_SYST 101; BP_SYST 107; BP_SYST 125; BP_DIAS 59; BP_DIAS 69; BP_DIAS 71
[2019-02-24 16:00] VITALS: BP 119/67
[2019-02-24] MEDS ORDERED: SLF 3 ML SYR IV PRN (18:45)
[2019-02-24 20:00] VITALS: BP 107/63
--- NOTE | 2019-02-24 20:33 | ECGEPIP ---
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
[2019-02-24] MEDS: SLF 3 ML SYR IV SCH (21:09)
[2019-02-24 23:59] VITALS: BP 130/68
[2019-02-25 04:00] VITALS: BP 129/59
[2019-02-25] MEDS: LEVOTHYROXINE 50MCG TABLET (0.05MG) PO SCH (05:12)
[2019-02-25] MEDS: SLF 3 ML SYR IV SCH (05:25)
[2019-02-25 05:55] LABS: HEMATOCRIT 36.3 % (42.0-52.0); HEMOGLOBIN 12.1 g/dl (13.5-17.5); MEAN CORPUSCULAR HEMOGLOBIN 30.6 pg (27.0-33.0); MEAN CORPUSCULAR HGB CONC 33.3 g/dl (32.0-36.5); MEAN CORPUSCULAR VOLUME 91.9 fl (80.0-96.0); PLATELET COUNT, AUTOMATED 288 10^3/uL (150-450); RED BLOOD COUNT 3.95 10^6/uL (4.30-6.10); WHITE BLOOD COUNT 8.2 10^3/uL (4.0-10.0)
[2019-02-25 06:15] LABS: BLOOD UREA NITROGEN 10 MG/DL (7-18); CALCIUM LEVEL 8.9 MG/DL (8.8-10.2); CARBON DIOXIDE LEVEL 34 MEQ/L (21-32); CHLORIDE LEVEL 105 MEQ/L (98-107); CREATININE FOR GFR 0.99 MG/DL (0.70-1.30); GLOMERULAR FILTRATION RATE > 60.0 (>35); GLUCOSE, FASTING 112 MG/DL (70-100); SODIUM LEVEL 141 MEQ/L (136-145)
[2019-02-25 07:20] VITALS: BP 134/71
[2019-02-25] MEDS: HumaLOG INSULIN (NovoLOG) PER UNIT SC SCH (07:30)
[2019-02-25] MEDS ORDERED: ISOSORBIDE MON. (IMDUR) 30 MG XR TAB PO SCH (09:00)
[2019-02-25] MEDS: LEVEMIR (INSULIN DETEMIR) 1 UNITS/0.01ML SQ SCH (09:07)
[2019-02-25] MEDS: FUROSEMIDE 20 MG TAB PO SCH (09:07)
[2019-02-25] MEDS: OMEPRAZOLE 20 MG CAP PO SCH (09:07)
[2019-02-25] MEDS: ENTRESTO 24-26MG TABLET (SACUBITRIL/VALSARTAN) PO SCH (09:07)
[2019-02-25] MEDS: ASPIRIN 81 MG ENTERIC TAB PO SCH (09:07)
[2019-02-25 09:10] VITALS: BP 134/71
[2019-02-25] MEDS ORDERED: ISOS30TA4 PO (09:37)
--- NOTE | 2019-02-25 10:14 | DSES ---
DATE OF ADMISSION: 02/23/2019 DATE OF DISCHARGE: PRINCIPAL DIAGNOSIS: Syncope secondary to orthostatic hypotension. SECONDARY DIAGNOSES: 1. History of ICD. 2. Hyperlipidemia. 3. Hypertensive heart disease. 4. Type 2 diabetes. 5. Hypothyroidism. 6. 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 HISTORY: Yefri Neves was admitted with a syncopal spell. He has been feeling weak and lightheaded for the better part of the week, working outside in the hot weather. He had a syncopal event and was admitted for this. Details of the history and physical as per admission. HOSPITAL COURSE: The patient was admitted to a progressive care unit (PCU) bed. He had no arrhythmia during the course of the hospitalization. Dr. Enrique and I communicated. He came by and interrogated the ICD and it showed no tachyarrhythmias present during the event recently. The patient's blood pressure has normalized with reduction of his antihypertensive regimen. He is able to walk in the [place] without syncope or lightheadedness. He feels ready for discharge today. SIGNIFICANT LABORATORIES: Electrolytes today: Sodium 141, potassium 4.0, BUN 10, creatinine 0.9, glucose 112. White count 8.2, hemoglobin 12.1, platelets 288. Blood sugars were between 100 and 200. DISPOSITION: The patient is discharged home in improved and stable condition. He will followup with Dr. Clark, his primary care provider, in a week. He will followup with Dr. Enrique' office per [facility]. His activity is as tolerated. 2 gram sodium diet, 1800 mL per day fluid restriction. His medications will be the same as he was taking prior to admission with the exception that his Imdur dose has been reduced from 60 mg daily to 30 mg daily. Otherwise, he is on: - aspirin 81 mg daily - atorvastatin 40 mg daily - clopidogrel 65 mg daily - Restasis eye drops - furosemide 20 mg twice a day - Lantus insulin 40 units daily - sliding scale insulin - Xalatan eye drops - levothyroxine 50 mcg daily - metformin 1000 mg twice a day - Nitrostat as needed - omeprazole 20 mg daily - Entresto 26 mg tablet twice a day - vitamin A 1000 units daily Prescription for the Imdur 30 mg daily was sent to [facility] in [place], 30 tablets with no refills.
== END 2019-02-25 12:39 | disposition home or self-care (01) ==
LOC: EDBD 15:57 → M ED 15:57 → M ED INP 19:47 → M PCU 02-24 14:30
PROVIDERS: ADMIT Internal Medicine; ATTEND Internal Medicine
DX: I95.1 Orthostatic hypotension (principal); I25.10 Atherosclerotic heart disease of native coronary artery without angina pectoris; Z95.5 Presence of coronary angioplasty implant and graft; E78.49 Other hyperlipidemia; I11.9 Hypertensive heart disease without heart failure; E11.9 Type 2 diabetes mellitus without complications; E03.9 Hypothyroidism, unspecified; I42.0 Dilated cardiomyopathy; I50.40 Unspecified combined systolic (congestive) and diastolic (congestive) heart failure; Z79.82 Long term (current) use of aspirin; Z79.4 Long term (current) use of insulin; Z79.84 Long term (current) use of oral hypoglycemic drugs; Z79.899 Other long term (current) drug therapy
CPT/HCPCS: 36415; 70450; 71046; 72125; 80048; 80053; 82550; 82553; 83735; 84439; 84443; 84484; 85025; 85027; 85610; 85730; 87070; 87205; 93005; 93041; 94760; 96372; 97161; 99285; G0378; J1650

== ENCOUNTER → 2019-04-17 | Outpatient (REF) | payer MEDICARE, OTHER ==
[~2019-04-17] MED LIST changes: +CARV3.12 PO; +DIGO0.123 PO; +ELIQ5TAB PO; +ISOS30TA4 PO; +LANTINJ4 SC; -LANTINJ4 SQ; +MAG400TA; +OMEP1CAP73 PO; -OMEP20CA4 PO; +VITMTA PO
[2019-04-17 12:59] LABS: ALBUMIN 3.9 GM/DL (3.2-5.2); ALT/SGPT 29 U/L (12-78); BILIRUBIN,TOTAL 0.6 MG/DL (0.2-1.0); BLOOD UREA NITROGEN 20 MG/DL (7-18); CALCIUM LEVEL 9.5 MG/DL (8.8-10.2); CARBON DIOXIDE LEVEL 32 MEQ/L (21-32); CHLORIDE LEVEL 105 MEQ/L (98-107); CHOLESTEROL LEVEL 114 MG/DL (<200); CHOLESTEROL RISK RATIO 2.375 (<5); CREATININE FOR GFR 1.09 MG/DL (0.70-1.30); GLOMERULAR FILTRATION RATE > 60.0 (>35); GLUCOSE, FASTING 158 MG/DL (70-100); HDL CHOLESTEROL 48 MG/DL (>40); LDL CHOLESTEROL 56 MG/DL (<100); NON-HDL-C 66 MG/DL; POTASSIUM SERUM 5.2 MEQ/L (3.5-5.1); SODIUM LEVEL 140 MEQ/L (136-145); TOTAL PROTEIN 6.8 GM/DL (6.4-8.2); TRIGLYCERIDES LEVEL 52 MG/DL (<150)
[2019-04-17 13:06] LABS: HEMOGLOBIN A1c 9.2 %
== END ==
LOC: M SFHCCLAY 08:33
PROVIDERS: ATTEND Family Medicine
DX: E11.9 Type 2 diabetes mellitus without complications (principal); E03.9 Hypothyroidism, unspecified
CPT/HCPCS: 80053; 80061; 83036; 84443; G0463

== ENCOUNTER → 2019-06-02 | Outpatient (REF) | payer MEDICARE, OTHER ==
[~2019-06-02] MED LIST changes: +DIGO0.12 PO; -DIGO0.123 PO; -MAG400TA; -OMEP1CAP73 PO; +OMEP20CA4 PO
[2019-06-03 11:55] LABS: BASO # 0.1 10^3/uL (0.0-0.2); BASO % 0.7 % (0.0-1.0); EOS # 0.1 10^3/uL (0.0-0.5); EOS % 0.8 % (0.0-3.0); HEMATOCRIT 39.3 % (42.0-52.0); HEMOGLOBIN 13.1 g/dl (13.5-17.5); LYMPH % 27.4 % (24.0-44.0); MEAN CORPUSCULAR HEMOGLOBIN 31.3 pg (27.0-33.0); MEAN CORPUSCULAR HGB CONC 33.3 g/dl (32.0-36.5); MEAN CORPUSCULAR VOLUME 93.8 fl (80.0-96.0); MONO # 0.6 10^3/uL (0.0-0.8); MONO % 8.6 % (0.0-5.0); NEUTROPHILS # 4.5 10^3/uL (1.5-8.5); NEUTROPHILS % 62.4 % (36.0-66.0); PLATELET COUNT, AUTOMATED 245 10^3/uL (150-450); RED BLOOD COUNT 4.19 10^6/uL (4.30-6.10); WHITE BLOOD COUNT 7.3 10^3/uL (4.0-10.0)
[2019-06-03 12:08] LABS: ALBUMIN 4.1 GM/DL (3.2-5.2); BILIRUBIN,TOTAL 0.6 MG/DL (0.2-1.0); CALCIUM LEVEL 9.5 MG/DL (8.8-10.2); CREATININE FOR GFR 1.29 MG/DL (0.70-1.30); GLOMERULAR FILTRATION RATE 56.5 (>35); MAGNESIUM LEVEL 1.8 MG/DL (1.8-2.4); POTASSIUM SERUM 4.5 MEQ/L (3.5-5.1); TOTAL PROTEIN 7.4 GM/DL (6.4-8.2)
== END ==
LOC: M SFHCCLAY 13:46
PROVIDERS: ATTEND Family Medicine
DX: G47.62 Sleep related leg cramps (principal); I50.22 Chronic systolic (congestive) heart failure; E78.2 Mixed hyperlipidemia; Z95.810 Presence of automatic (implantable) cardiac defibrillator
CPT/HCPCS: 80053; 83540; 83735; 85025; G0463

== ENCOUNTER 2019-06-15 09:03 | Inpatient (IN) | payer MEDICARE, OTHER ==
[~2019-06-15] VITALS: Ht 180.3 cm; Wt 90.6 kg
[~2019-06-15 09:03] MED LIST changes: -CARV3.12 PO; -DIGO0.12 PO; -ELIQ5TAB PO; -VITMTA PO
[2019-06-15] MEDS ORDERED: DIGO0.12 PO (09:20)
--- NOTE | 2019-06-15 09:55 | REP ---
Clinical: Possible acute stroke . Comparison: 02/23/2019 Findings: Age-related atrophy with periventricular leukomalacia and microvascular ischemic changes are appreciated. The ventricles and sulci are symmetric. Corral-white differentiation is maintained. There is no evidence for acute intracranial hemorrhage, mass/mass effect, pathology or infarction. No extra-axial fluid collection. Calvarium is intact. Paranasal sinuses and mastoid air cells are clear. Impression: Age related atrophy and microvascular ischemic changes. No acute intracranial hemorrhage, infarction, or mass/mass effect. Electronically Signed by Melecio Lema MD 06/15/2019 09:46 A
--- NOTE | 2019-06-15 09:56 | REP ---
Clinical: Altered mental status . Comparison: 02/23/2019 . Findings: The mediastinum and cardiac silhouette are stable and within normal limits for portable technique. The lung prieto are clear without acute consolidation, effusion, or pneumothorax. Skeletal structures are intact. Impression: No acute cardiopulmonary process appreciated. Electronically Signed by Melecio Lema MD 06/15/2019 09:48 A
[2019-06-15 10:04] LABS: BASO % 0.8 % (0.0-1.0); EOS # 0.1 10^3/uL (0.0-0.5); EOS % 1.8 % (0.0-3.0); HEMATOCRIT 40.3 % (42.0-52.0); LYMPH # 1.4 10^3/uL (1.5-5.0); LYMPH % 27.8 % (24.0-44.0); MEAN CORPUSCULAR HEMOGLOBIN 30.6 pg (27.0-33.0); MEAN CORPUSCULAR HGB CONC 32.3 g/dl (32.0-36.5); MEAN CORPUSCULAR VOLUME 94.8 fl (80.0-96.0); MONO # 0.4 10^3/uL (0.0-0.8); MONO % 8.1 % (0.0-5.0); NEUTROPHILS % 61.3 % (36.0-66.0); PLATELET COUNT, AUTOMATED 222 10^3/uL (150-450); RED BLOOD COUNT 4.25 10^6/uL (4.30-6.10)
[2019-06-15 10:20] LABS: INR 1.14; PROTHROMBIN TIME 14.3 SECONDS (11.8-14.0)
[2019-06-15 10:21] LABS: PARTIAL THROMBOPLASTIN TIME 25.5 SECONDS (25.0-38.4)
[2019-06-15 10:38] LABS: BLOOD UREA NITROGEN 18 MG/DL (7-18); CALCIUM LEVEL 8.5 MG/DL (8.8-10.2); CARBON DIOXIDE LEVEL 34 MEQ/L (21-32); CHLORIDE LEVEL 102 MEQ/L (98-107); CPK CREATINE PHOSPHOKINASE 134 U/L (39-308); GLOMERULAR FILTRATION RATE > 60.0 (>35); GLUCOSE, FASTING 277 MG/DL (70-100); MB/CK RELATIVE INDEX 2.24 (< OR =4); POTASSIUM SERUM 4.8 MEQ/L (3.5-5.1); SODIUM LEVEL 137 MEQ/L (136-145); TROPONIN I 0.02 NG/ML (< 0.10)
[2019-06-15] MEDS ORDERED: CARV3.12 PO (11:21)
[2019-06-15] MEDS ORDERED: VITMTA PO (11:21)
[2019-06-15] MEDS ORDERED: LISI-1046 PO (11:21)
[2019-06-15] MEDS ORDERED: ISOS30TA4 PO (11:21)
--- NOTE | 2019-06-15 12:02 | ECGEPIP ---
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
[2019-06-15] MEDS ORDERED: ACETAMINOPHEN TAB 650MG DOSE (2X325MG) PO PRN (12:15)
[2019-06-15] MEDS ORDERED: MAALOX 30 ML SUSP *UDC PO PRN (12:15)
[2019-06-15] MEDS ORDERED: MOM 30ML SUSPENSION UDC PO PRN (12:15)
[2019-06-15] MEDS ORDERED: GLUCOSE 4 GM CHEW TABLET PO PRN (12:30)
[2019-06-15] MEDS ORDERED: DEXTROSE 50% 50 ML SYRINGE IV PRN (12:30)
[2019-06-15] MEDS ORDERED: GLUCAGON FOR INJ 1 MG VIAL (J1610) SC PRN (12:30)
[2019-06-15] MEDS ORDERED: NITROGLYCERIN 0.4 MG SUBL TABLET SL PRN (12:30)
[2019-06-15] MEDS: DOCUSATE SODIUM 100 MG CAP PO SCH ×2 (12:35→20:43)
[2019-06-15] MEDS: APIXABAN 5 MG TAB (ELIQUIS) PO SCH ×2 (12:35→20:43)
--- NOTE | 2019-06-15 12:47 | HPEPDOC ---
General Date of Admission Jun 15, 2019 at 12:11 Date of Service: Jun 15, 2019 Primary Care Physician: Angel Clark Chief Complaint The patient is a 83-year-old male admitted with a reason for visit of CVA. History of Present Illness 83 years old white male with past medical history of coronary artery disease status post stent and defibrillator with pacemaker placed in October 2018, diabetes mellitus, hypothyroidism, hypertension, hyperlipidemia, GERD, proximal superior ventricular tachycardia recently developed numbness of his hand 11:00 last night and when he woke up in the middle of the night and tried to find something on the shelf. He can feel his fingers. He does have a history of carpal tunnel syndrome on the right side, but all these 3 fingers get numb not t he whole hand. At this morning when he tried to eat the fluid came out from right side of his face and he really had difficulty swallowing. Patient is out of window for TPA. Patient is being admitted for further workup and management. Patient has some dysarthria at the present time, but no other complaints Home Medications Scheduled Aspirin (Aspirin EC) 81 Mg Tab, 81 MG PO DAILY, (Reported) Atorvastatin Calcium (Atorvastatin Calcium) 40 Mg Tablet, 40 MG PO QHS, (Reported) Carvedilol (Carvedilol) 3.125 Mg Tablet, 3.125 MG PO BID, (Reported) Clopidogrel Bisulfate (Clopidogrel) 75 Mg Tablet, 75 MG PO QHS, (Reported) Digoxin (Digoxin) 125 Mcg Tablet, 125 MCG PO QHS, (Reported) Furosemide (Furosemide) 20 Mg Tablet, 20 MG PO BID, (Reported) Insulin Glargine,Hum.rec.anlog (Lantus Solostar) 100 Unit/Ml Inj, 40 UNITS SC DAILY, (Reported) Insulin Lispro (Humalog Kwikpen U-100) 100 Unit/Ml Inj, 1 DOSE SQ ACHS, (Reporte d) PER SLIDING SCALE Isosorbide Mononitrate (Isosorbide Mononitrate ER) 30 Mg Tab.er.24h, 30 MG PO DAILY, (Reported) Latanoprost (Xalatan) 2.5 Ml Drops, 1 DROP OU QHS, (Reported) Levothyroxine Sodium (Levothyroxine Sodium) 50 Mcg Tablet, 50 MCG PO QAM, (Reported) Lisinopril (Lisinopril) 2.5 Mg Tablet, 5 MG PO QHS, (Reported) Metformin HCl (Metformin HCl) 1,000 Mg Tab, 1,000 MG PO BID, (Reported) Multivitamins (Thera M Plus Tablet) 1 Each Tablet, 1 TAB PO DAILY, (Reported) Omeprazole (Omeprazole) 20 Mg Cap, 20 MG PO DAILY, (Reported) Sacubitril/Valsartan (Entresto 24 mg-26 mg Tablet) 1 Each Tablet, 1 TAB PO BID, (Reported) Scheduled PRN Nitroglycerin (Nitroglycerin) 0.4 Mg Tab.subl, 0.4 MG PO Q5MP PRN for CHEST PAIN, (Reported) Allergies Coded Allergies: No Known Allergies (Unverified , 11/02/18) Past Medical History Medical History CAD status post stent in 2010 and 2018, status post pacemaker placement, status post defibrillator placement, diabetes mellitus, hypothyroidism, hypertension, hyperlipidemia, GERD, proximal SVT, recently diagnosed Surgical History History of surgery on left lower calf and right wrist in the past. Left shoulder rotator cuff repair. 3 cardiac stents in 2019. Left wrist Coppertone syndrome repair, appendectomy, bilateral trigger finger repair Family History Significant Family History: No pertinent family hx Social History * Smoker: Denies Alcohol: Denies A-FIB/CHADSVASC A-FIB History Current/History of A-Fib/PAF?: No Review of Systems Constitutional: Reports: Chills; Denies: Fever, Malaise, Night Sweats, Weakness, Fatigue, Weight Loss, Lethargy, Other Eyes: Denies: Pain, Vision change, Conjunctivae inflammation, Eyelid inflammation, Redness, Other ENT: Denies: Head Aches, Ear Pain, Dysphagia, Sinus Congestion, Post Nasal Drip, Sore Throat, Epistaxis, Other Symptoms Skin: Denies: Rash, Lesions, Jaundice, Bruising, Itching, Dry, Breakdown, Nail Changes, Other Pulmonary: Denies: Dyspnea, Cough, Pleuritic Chest Pain, Other Symptoms Cardiovascular: Denies: Chest Pain, Palpitations, Orthopnea, Paroxysmal Noc. Dyspnea, Edema, Lt Headedness, Other Symptoms Gastrointestinal: Denies: Nausea, Vomiting, Abdominal Pain, Diarrhea, Constipation, Melena, Hematochezia, Other Symptoms Genitourinary: Denies: Dysuria, Frequency, Incontinence, Hematuria, Retention, Other Symptoms Hematologic: Denies: Bruising, Bleeding Excessively, Petecchia, Purpura, Enlarged Lymph Nodes, Other Hematologic Endocrine: Denies: Polydipsia, Polyphagia, Polyuria, Heat Intolerance, Cold Intolerance, Other Endocrine Sx Musculoskeletal: Denies: Neck Pain, Back Pain, Shoulder Pain, Arm Pain, Hand Pain, Leg Pain, Foot Pain, Joint Pain, Muscle Pain, Spasms, Other Symptoms Neurological: Reports: Other Symptoms (numbness, right hand, difficulty swallowing) Psych: Denies: Mood Normal, Anxiety, Depression, Memory Issues, Thoughts of Self Harm, Anger, Thoughts of Harming Other, Other Psych Physical Examination General Exam: Positive: Alert, Cooperative, Other (, has some slurred speech) Eye Exam: Positive: PERRLA, Conjunctiva & lids normal ENT Exam: Positive: Atraumatic, Mucous membr. moist/pink Neck Exam: Positive: Supple Chest Exam: Positive: Clear to auscultation, Normal air movement Heart Exam: Positive: Rate Normal, Normal S1, Normal S2 Abdomen Exam: Positive: Normal bowel sounds, Soft, Tenderness Extremity Exam: Positive: Normal pulses Skin Exam: Positive: Nl turgor and temperature Neuro Exam: Positive: Strength at 5/5 X4 ext, Cranial Nerves 3-12 NL, Other (, decreased sensation right hand below the wrist, dysarthria also noted) Psych Exam: Positive: Mental status NL, Oriented x 3 Vital Signs Vital Signs Date Time Temp Pulse Resp B/P (MAP) Pulse Ox O2 Delivery O2 Flow Rate FiO2 06/15/19 11:48 69 18 95 Room Air 06/15/19 11:45 112/66 (81) 06/15/19 09:19 96.6 Laboratory Data Labs 24H Laboratory Tests 2 06/15/19 09:40: Immature Granulocyte % (Auto) 0.2, Neutrophils (%) (Auto) 61.3, Lymphocytes (%) (Auto) 27.8, Monocytes (%) (Auto) 8.1H, Eosinophils (%) (Auto) 1.8, Basophils (%) (Auto) 0.8, Neutrophils # (Auto) 3.0, Lymphocytes # (Auto) 1.4L, Monocytes # (Auto) 0.4, Eosinophils # (Auto) 0.1, Basophils # (Auto) 0.0, Nucleated Red Blo od Cells % (auto) 0.0, Prothrombin Time 14.3H, Prothromb Time International Ratio 1.14, Activated Partial Thromboplast Time 25.5, Anion Gap 1L, Glomerular Filtration Rate > 60.0, Calcium Level 8.5L, Total Creatine Kinase 134, Creatine Kinase MB 3.0, Creatine Kinase MB Relative Index 2.24, Troponin I 0.02 06/15/19 10:02: Bedside Glucose (Misc Panel) 294H CBC/BMP Laboratory Tests 06/15/19 09:40 Problems (1) CVA (cerebral vascular accident) Status: Acute Problem Text: 83 years old white male with past medical history of multiple medical problems including CAD and recently diagnosed paroxysmal Supraventricular tachycardia, diabetes mellitus, hypothyroidism, hyperlipidemia and hypertension developed numbness of his right hand. Most of the time. He has numbness only 3 fingers laterally on his right hand secondary to upper tunnel syndrome which he had repaired in the past, but last night he felt his whole hand was not. He also could not swallow and a coffee dribble out of his mouth this morning. Patient CT head is negative, but clinical picture is consistent with acute TIA versus CVA. Unable to an MRI secondary to defibrillator and pacemaker placement. Dr. Mccann the ED attending. He spoke with Dr. Enrique, his flexographic printing machinist, and he recommended to start patient on aspirin and eliquis and to stop Plavix, this will also conveyed to Dr. Dawkins neurologist on-call and he agreed with the change. Admit patient to PCU Cardiac monitoring . Neurologic every 4 hours for 24 hours Start baby aspirin and eliquis . CTA of brain and neck PT/OT/swallow/ speech evaluation in a.m. Nothing by mouth except meds and sips of water Continue home meds DVT prophylaxis with eliquis and a bilateral SCDs (2) CAD (coronary artery disease) Status: Chronic Problem Text: Dr. Mccann discussed with Dr. Enrique's flexographic printing machinist Advised to change antiplatelet and anticoagulation treatment. 2 baby aspirin and eliquis Continue ekg monitor All home meds (3) Diabetes mellitus Status: Chronic Problem Text: Continue home long-acting insulin Fingerstick blood sugar every before meals and at bedtime with coverage (4) Hypothyroid Status: Chronic Problem Text: Continue home meds (5) HTN (hypertension) Status: Chronic Problem Text: Continue home meds (6) Hyperlipemia Status: Chronic Problem Text: Continue home meds (7) GERD (gastroesophageal reflux disease) Status: Chronic Problem Text: Continue home meds Plan / VTE VTE Prophylaxis Ordered?: Yes REX GANN MD Jun 15, 2019 12:46
[2019-06-15] MEDS ORDERED: ISOVUE-370 76% 100ML VIAL (Q9967) As Ordered ONE (12:57)
--- NOTE | 2019-06-15 13:36 | REP ---
CLINICAL: Acute cerebrovascular accident. TECHNIQUE: Axial contrast enhanced angiographic images through the brain with coronal and sagittal re-formations as well as volume rendered 3-D images of the intracranial arterial structures. COMPARISON: None FINDINGS: There are suggestions for atherosclerotic disease involving the internal carotid arteries without significant stenosis. There is symmetric appearance to the intracranial vasculature and [place] of Enrique, which appears relatively normal. The visualized portions of the vertebrobasilar system appear intact. There is no evidence for arteriovenous malformation, aneurysm, or significant area of stenosis/occlusion. IMPRESSION: Moderate atherosclerotic changes. No evidence for aneurysm, AVM, or significant further pathology. Intracranial vasculature appears relatively symmetric. Electronically Signed by Melecio Lema MD 06/15/2019 01:27 P
--- NOTE | 2019-06-15 13:39 | REP ---
CLINICAL: Acute cerebrovascular accident. TECHNIQUE: Axial contrast enhanced angiographic images from the thoracic aortic arch through the skull base with coronal and sagittal re-formations as well as volume rendered 3-D images and MPR images of the bilateral carotid systems. COMPARISON: None FINDINGS: Moderate amounts of partially calcified atheromatous plaquing noted involving the distal common carotid arteries through the carotid bulbs causing less than 50% narrowing through the carotid bulbs. The internal carotid arteries are essentially symmetric and normal to the level of the skull base. IMPRESSION: Moderate partially calcified atherosclerotic changes at the carotid bulbs causing focal narrowing in the less than 50% range. The bilateral internal carotid arteries appear patent and symmetric to the skull base. Electronically Signed by Melecio Lema MD 06/15/2019 01:31 P
[2019-06-15 14:00] VITALS: BP 138/72
[2019-06-15] MEDS: NS 1,000 ML IV SCH (14:28)
[2019-06-15] MEDS: LEVEMIR (INSULIN DETEMIR) 1 UNITS/0.01ML SC SCH (14:31)
[2019-06-15] MEDS: HumaLOG INSULIN (NovoLOG) PER UNIT SC SCH ×3 (14:42→23:48)
[2019-06-15 16:00] VITALS: BP 118/68
[2019-06-15] MEDS ORDERED: HumaLOG INSULIN (NovoLOG) PER UNIT SC SCH ×2 (17:30→21:00)
[2019-06-15 20:00] VITALS: BP 110/68
[2019-06-15] MEDS: ENTRESTO 24-26MG TABLET (SACUBITRIL/VALSARTAN) PO SCH (20:42)
[2019-06-15] MEDS: metFORMIN (GLUCOPHAGE) 1000 MG TABLET PO SCH (20:42)
[2019-06-15] MEDS: CARVedilol 3.125 MG TAB PO SCH (20:42)
[2019-06-15] MEDS: FUROSEMIDE 20 MG TAB PO SCH (20:43)
[2019-06-15] MEDS ORDERED: LISINOPRIL *2.5 MG* TAB PO SCH (21:00)
[2019-06-15] MEDS ORDERED: ATORVASTATIN 20 MG TAB PO SCH (21:00)
[2019-06-15] MEDS ORDERED: LATANOPROST 0.005% OPHTH SOLN 2.5 ML OU SCH (21:00)
[2019-06-15] MEDS ORDERED: DIGOXIN 0.125 MG TAB PO SCH (21:00)
[2019-06-15 23:59] VITALS: BP 120/62
[2019-06-16 04:00] VITALS: BP 127/69
[2019-06-16] MEDS: HumaLOG INSULIN (NovoLOG) PER UNIT SC SCH (05:13)
[2019-06-16 05:37] LABS: HEMATOCRIT 39.2 % (42.0-52.0); HEMOGLOBIN 13.1 g/dl (13.5-17.5); MEAN CORPUSCULAR HEMOGLOBIN 31.4 pg (27.0-33.0); MEAN CORPUSCULAR HGB CONC 33.4 g/dl (32.0-36.5); PLATELET COUNT, AUTOMATED 204 10^3/uL (150-450); RED BLOOD COUNT 4.17 10^6/uL (4.30-6.10); WHITE BLOOD COUNT 5.1 10^3/uL (4.0-10.0)
[2019-06-16 05:59] LABS: ALBUMIN 3.3 GM/DL (3.2-5.2); ALT/SGPT 21 U/L (12-78); BILIRUBIN,TOTAL 0.6 MG/DL (0.2-1.0); BLOOD UREA NITROGEN 13 MG/DL (7-18); CALCIUM LEVEL 8.6 MG/DL (8.8-10.2); CARBON DIOXIDE LEVEL 32 MEQ/L (21-32); CHLORIDE LEVEL 108 MEQ/L (98-107); CREATININE FOR GFR 1.07 MG/DL (0.70-1.30); GLOMERULAR FILTRATION RATE > 60.0 (>35); GLUCOSE, FASTING 147 MG/DL (70-100); MAGNESIUM LEVEL 2.1 MG/DL (1.8-2.4); POTASSIUM SERUM 4.7 MEQ/L (3.5-5.1); SODIUM LEVEL 142 MEQ/L (136-145); TOTAL PROTEIN 6.6 GM/DL (6.4-8.2)
[2019-06-16] MEDS ORDERED: LEVOTHYROXINE 50MCG TABLET (0.05MG) PO SCH (06:00)
[2019-06-16] MEDS: NS 1,000 ML IV SCH (07:24)
[2019-06-16 08:00] VITALS: BP 122/69
[2019-06-16 08:53] VITALS: BP 127/69
[2019-06-16] MEDS: CARVedilol 3.125 MG TAB PO SCH (08:53)
[2019-06-16] MEDS: ENTRESTO 24-26MG TABLET (SACUBITRIL/VALSARTAN) PO SCH (08:53)
[2019-06-16] MEDS: APIXABAN 5 MG TAB (ELIQUIS) PO SCH (08:53)
[2019-06-16] MEDS: metFORMIN (GLUCOPHAGE) 1000 MG TABLET PO SCH (08:54)
[2019-06-16] MEDS: FUROSEMIDE 20 MG TAB PO SCH (08:54)
[2019-06-16] MEDS: DOCUSATE SODIUM 100 MG CAP PO SCH (08:55)
[2019-06-16] MEDS: LEVEMIR (INSULIN DETEMIR) 1 UNITS/0.01ML SC SCH (08:56)
[2019-06-16] MEDS ORDERED: OMEPRAZOLE 20 MG CAP PO SCH (09:00)
[2019-06-16] MEDS ORDERED: MULTIVITAMINS/MINERALS THERAP 1 TAB PO SCH (09:00)
[2019-06-16] MEDS ORDERED: ISOSORBIDE MON. (IMDUR) 30 MG XR TAB PO SCH (09:00)
[2019-06-16] MEDS ORDERED: ASPIRIN 81 MG ENTERIC TAB PO SCH (09:00)
--- NOTE | 2019-06-16 10:12 | IPNPDOC ---
Subjective Date Seen The patient was seen on 06/16/19. Subjective Chief Complaint/HPI Patient awake, alert, in no apparent distress, dysarthria as a result, but patient complained of still some difficulty swallowing this morning. General: Denies: ROS Unobtainable, Chills, Night Sweats, Fatigue, Malaise, Norm al Appetite, Other Symptoms Constitutional: Denies: Chills, Fever, Malaise, Night Sweats, Weakness, Fatigue, Weight Loss, Lethargy, Other Eyes: Denies: Pain, Vision change, Conjunctivae inflammation, Eyelid inflammation, Redness, Other Pulmonary: Denies: Dyspnea, Cough, Pleuritic Chest Pain, Other Symptoms Cardiovascular: Denies: Chest Pain, Palpitations, Orthopnea, Paroxysmal Noc. Dyspnea, Edema, Lt Headedness, Other Symptoms Gastrointestinal: Denies: Nausea, Vomiting, Abdominal Pain, Diarrhea, Constipation, Melena, Hematochezia, Other Symptoms Musculoskeletal: Denies: Neck Pain, Back Pain, Shoulder Pain, Arm Pain, Hand Pain, Leg Pain, Foot Pain, Joint Pain, Muscle Pain, Spasms, Other Symptoms Neurological: Reports: Other Symptoms (difficulty swallowing) Psych: Denies: Mood Normal, Anxiety, Depression, Memory Issues, Thoughts of Self Harm, Anger, Thoughts of Harming Other, Other Psych Objective Physical Examination General Exam: Positive: Alert, Cooperative, Other (, has some slurred speech) Chest Exam: Positive: Clear to auscultation, Normal air movement Heart Exam: Positive: Rate Normal, Normal S1, Normal S2 Abdomen Exam: Positive: Normal bowel sounds, Soft, Tenderness Extremity Exam: Positive: Normal pulses Skin Exam: Positive: Nl turgor and temperature Neuro Exam: Positive: Strength at 5/5 X4 ext, Cranial Nerves 3-12 NL, Other (. Normal sensation right hand, slight numbness of right first, second and third fingers) Psych Exam: Positive: Mental status NL, Oriented x 3 Assessment /Plan Problems (1) CVA (cerebral vascular accident) Status: Acute Problem Text: Abiel was admitted to PCU for further care No further neurological changes noted, but his dysarthria has improved. Still complains of mild difficulty swallowing. Patient was seen by physical therapy and occupational therapy and no further int ervention have been recommended Speech and swallow therapy evaluation is still pending pt is still and nothing by mouth until cleared by speech therapist Continue aspirin and also eliquis Out of bed as tolerated (2) Diabetes mellitus Status: Chronic Problem Text: Fingerstick blood sugar every 6 hours with coverage Will change it to daily before meals and at bedtime once cleared by speech and swallow therapy (3) Hyperlipemia Status: Chronic Problem Text: Continue statins LDL has been ordered (4) GERD (gastroesophageal reflux disease) Status: Chronic Problem Text: Continue home meds (5) HTN (hypertension) Status: Chronic Problem Text: Continue home meds (6) Hypothyroid Status: Chronic Problem Text: Continue home meds Plan/VTE VTE Prophylaxis Ordered?: Yes VS, I&O, 24H, Fishbone Vital Signs/I&O Vital Signs Date Time Temp Pulse Resp B/P (MAP) Pulse Ox O2 Delivery O2 Flow Rate FiO2 06/16/19 08:53 70 127/69 06/16/19 08:00 97.2 18 94 Room Air I&O- Last 24 Hours up to 6 AM 06/16/19 06:00 Intake Total 800 ml Output Total 1350 ml Balance -550 ml Laboratory Data 24H LABS Laboratory Tests 2 06/15/19 12:55: Bedside Glucose (Misc Panel) 221H 06/15/19 17:57: Bedside Glucose (Misc Panel) 151H 06/15/19 23:34: Bedside Glucose (Misc Panel) 129H 06/16/19 05:09: Nucleated Red Blood Cells % (auto) 0.0, Anion Gap 2L, Glomerular Filtration Rate > 60.0, Calcium Level 8.6L, Magnesium Level 2.1, Total Bilirubin 0.6, Aspartate Amino Transf (AST/SGOT) 18, Alanine Aminotransferase (ALT/SGPT) 21, Alkaline Phosphatase 99, Total Protein 6.6, Albumin 3.3, Albumin/Globulin Ratio 1.00 06/16/19 05:11: Bedside Glucose (Misc Panel) 142H CBC/BMP Laboratory Tests 06/16/19 05:09 REX GANN MD Jun 16, 2019 10:12
[2019-06-16] MEDS ORDERED: ELIQ5TAB PO (11:04)
--- NOTE | 2019-06-16 11:11 | DS.PDOC ---
Discharge Summary General Date of Admission Jun 15, 2019 at 12:11 Date of Discharge 06/16/19 Discharge Summary PROCEDURES PERFORMED DURING STAY: None. ADMITTING DIAGNOSES: 1. TIA, rule out CVA. DISCHARGE DIAGNOSES: 1. TIA., Diabetes mellitus, hypothyroidism, hypertension COMPLICATIONS/CHIEF COMPLAINT: CVA. HISTORY OF PRESENT ILLNESS: 83 years old white male with past medical history of coronary artery disease status post stent and defibrillator with pacemaker placed in October 2018, diabetes mellitus, hypothyroidism, hypertension, hyperlipidemia, GERD, proximal superior ventricular tachycardia recently developed numbness of his hand 11:00 last night and when he woke up in the middle of the night and tried to find something on the shelf. He can feel his fingers. He does have a history of carpal tunnel syndrome on the right side, but all these 3 fingers get numb not the whole hand. At this morning when he tried to eat the fluid came out from right side of his face and he really had difficulty swallowing. Patient is out of window for TPA. Patient is being admitted for further workup and management. Patient has some dysarthria at the present time, but no other complaints. HOSPITAL COURSE: Pt was admitted to PCU for further care No further neurological changes noted, but his dysarthria has improved. Patient was seen by physical therapy and occupational therapy and no further intervention have been recommended Ration was seen by speech and swallow therapy and cleared with a regular diet and thin liquids Jordy has been started on aspirin and eliquis is and will continue the same pt is to follow with PCP to get a referral for neurology and also with his cardi ologist as an outpatient in one week Patient will be discharged home today on all current meds Jordy also has been advised to discontinue Plavix and lisinopril as he is currently on Entresto . DISCHARGE MEDICATIONS: Please see below. ALLERGIES: Please see below. PHYSICAL EXAMINATION ON DISCHARGE: VITAL SIGNS: Please see below. GENERAL: Within normal limits HEENT: ROBERT Extraocular muscles intact NECK: Supple, no JVD, no lymphadenopathy CARDIOVASCULAR EXAMINATION: S1, S2, regular RESPIRATORY EXAMINATION: Clear to A&P ABDOMINAL EXAMINATION: Soft, nontender. Once was present EXTREMITIES: No clubbing, cyanosis, edema SKIN: Normal NEUROLOGICAL EXAMINATION: . No focal motor sensory deficit PSYCHIATRIC EXAMINATION: Normal LABORATORY DATA: Please see below. IMAGING: CT head: No acute infarct or hemorrhage . CTA of the brain and neck: No stenosis, no significant thrombosis or aneurysm PROGNOSIS: Good ACTIVITY: As tolerated. DIET: As tolerated DISCHARGE PLAN: Follows with the PCP and accounting machine operator in 1 week DISPOSITION: . Home DISCHARGE INSTRUCTIONS: 1. As per discharge instruction. ITEMS TO FOLLOWUP ON ON OUTPATIENT: 1. Follow with PCP for neurology referral and accounting machine operator in 1 week. DISCHARGE CONDITION: Stable. TIME SPENT ON DISCHARGE: 32 minutes. Vital Signs/I&Os Vital Signs Date Time Temp Pulse Resp B/P (MAP) Pulse Ox O2 Delivery O2 Flow Rate FiO2 06/16/19 08:53 70 127/69 06/16/19 08:00 97.2 18 94 Room Air I&O- Last 24 Hours up to 6 AM 06/16/19 06:00 Intake Total 800 ml Output Total 1350 ml Balance -550 ml Laboratory Data Labs 24H Laboratory Tests 2 06/15/19 12:55: Bedside Glucose (Misc Panel) 221H 06/15/19 17:57: Bedside Glucose (Misc Panel) 151H 06/15/19 23:34: Bedside Glucose (Misc Panel) 129H 06/16/19 05:09: Nucleated Red Blood Cells % (auto) 0.0, Anion Gap 2L, Glomerular Filtration Rate > 60.0, Calcium Level 8.6L, Magnesium Level 2.1, Total Bilirubin 0.6, Aspartate Amino Transf (AST/SGOT) 18, Alanine Aminotransferase (ALT/SGPT) 21, Alkaline Phosphatase 99, Total Protein 6.6, Albumin 3.3, Albumin/Globulin Ratio 1.00 06/16/19 05:11: Bedside Glucose (Misc Panel) 142H CBC/BMP Laboratory Tests 06/16/19 05:09 FSBS Laboratory Tests Test 06/15/19 12:55 06/15/19 17:57 06/15/19 23:34 06/16/19 05:11 Range/Units Bedside Glucose (Misc Panel) 221 151 129 142 83-110 MG/DL Discharge Medications Scheduled Apixaban (Eliquis) 5 Mg Tablet, 5 MG PO BID Aspirin (Aspirin EC) 81 Mg Tab, 81 MG PO DAILY, (Reported) Atorvastatin Calcium (Atorvastatin Calcium) 40 Mg Tablet, 40 MG PO QHS, (Reported) Carvedilol (Carvedilol) 3.125 Mg Tablet, 3.125 MG PO BID, (Reported) Digoxin (Digoxin) 125 Mcg Tablet, 125 MCG PO QHS, (Reported) Furosemide (Furosemide) 20 Mg Tablet, 20 MG PO BID, (Reported) Insulin Glargine,Hum.rec.anlog (Lantus Solostar) 100 Unit/Ml Inj, 40 UNITS SC DAILY, (Reported) Insulin Lispro (Humalog Kwikpen U-100) 100 Unit/Ml Inj, 1 DOSE SQ ACHS, (Reported) PER SLIDING SCALE Isosorbide Mononitrate (Isosorbide Mononitrate ER) 30 Mg Tab.er.24h, 30 MG PO DAILY, (Reported) Latanoprost (Xalatan) 2.5 Ml Drops, 1 DROP OU QHS, (Reported) Levothyroxine Sodium (Levothyroxine Sodium) 50 Mcg Tablet, 50 MCG PO QAM, (Reported) Metformin HCl (Metformin HCl) 1,000 Mg Tab, 1,000 MG PO BID, (Reported) Multivitamins (Thera M Plus Tablet) 1 Each Tablet, 1 TAB PO DAILY, (Reported) Omeprazole (Omeprazole) 20 Mg Cap, 20 MG PO DAILY, (Reported) Sacubitril/Valsartan (Entresto 24 mg-26 mg Tablet) 1 Each Tablet, 1 TAB PO BID, (Reported) Scheduled PRN Nitroglycerin (Nitroglycerin) 0.4 Mg Tab.subl, 0.4 MG PO Q5MP PRN for CHEST PAIN, (Reported) Allergies Coded Allergies: No Known Allergies (Unverified , 11/02/18) REX GANN MD Jun 16, 2019 11:11
[2019-06-16 12:00] VITALS: BP 117/66
[2019-06-16] MEDS ORDERED: HumaLOG INSULIN (NovoLOG) PER UNIT SC SCH (12:00)
== END 2019-06-16 15:26 | disposition home or self-care (01) | DRG 69 ==
LOC: EDBD 09:03 → M ED 09:03 → M ED INP 12:11 → M PCU 14:00
PROVIDERS: ADMIT Internal Medicine; ATTEND Internal Medicine
DX: G45.9 Transient cerebral ischemic attack, unspecified (principal); I47.1 Supraventricular tachycardia; I25.10 Atherosclerotic heart disease of native coronary artery without angina pectoris; Z95.810 Presence of automatic (implantable) cardiac defibrillator; E11.9 Type 2 diabetes mellitus without complications; E03.9 Hypothyroidism, unspecified; I10 Essential (primary) hypertension; E78.5 Hyperlipidemia, unspecified; K21.9 Gastro-esophageal reflux disease without esophagitis; Z79.82 Long term (current) use of aspirin; Z79.4 Long term (current) use of insulin; Z79.899 Other long term (current) drug therapy; Z95.5 Presence of coronary angioplasty implant and graft; Z90.49 Acquired absence of other specified parts of digestive tract; Z87.39 Personal history of other diseases of the musculoskeletal system and connective tissue; Z79.01 Long term (current) use of anticoagulants

== ENCOUNTER 2019-06-19 14:15 | Outpatient (RCR) | payer MEDICARE, OTHER ==
[~2019-06-19 14:15] MED LIST changes: +CARV3.12 PO; +DIGO0.12 PO; +ELIQ5TAB PO; +VITMTA PO
[2019-06-28] MEDS ORDERED: MAG400TA (13:57)
== END 2019-07-12 ==
LOC: M ST 14:15
PROVIDERS: ATTEND Family Medicine
DX: I69.322 Dysarthria following cerebral infarction (principal); Z51.89 Encounter for other specified aftercare

== ENCOUNTER 2019-06-28 13:40 | Emergency (ER) | payer MEDICARE, OTHER ==
[~2019-06-28] VITALS: Ht 180.3 cm; Wt 83.2 kg
[2019-06-28] MEDS ORDERED: MAG400TA (13:57)
[2019-06-28 14:30] LABS: BASO % 0.5 % (0.0-1.0); EOS # 0.1 10^3/uL (0.0-0.5); EOS % 1.2 % (0.0-3.0); HEMATOCRIT 37.5 % (42.0-52.0); HEMOGLOBIN 12.4 g/dl (13.5-17.5); LYMPH # 1.8 10^3/uL (1.5-5.0); LYMPH % 30.4 % (24.0-44.0); MEAN CORPUSCULAR HGB CONC 33.1 g/dl (32.0-36.5); MEAN CORPUSCULAR VOLUME 93.8 fl (80.0-96.0); MONO # 0.4 10^3/uL (0.0-0.8); MONO % 7.5 % (0.0-5.0); NEUTROPHILS # 3.5 10^3/uL (1.5-8.5); NEUTROPHILS % 60.1 % (36.0-66.0); PLATELET COUNT, AUTOMATED 195 10^3/uL (150-450); WHITE BLOOD COUNT 5.9 10^3/uL (4.0-10.0)
[2019-06-28 15:02] LABS: CALCIUM LEVEL 9.3 MG/DL (8.8-10.2); CK-MB VALUE MASS 2.7 NG/ML (<3.6); CREATININE FOR GFR 1.28 MG/DL (0.70-1.30); MB/CK RELATIVE INDEX 1.64 (< OR =4); POTASSIUM SERUM 4.2 MEQ/L (3.5-5.1); TROPONIN I 0.04 NG/ML (< 0.10)
[2019-06-28 18:00] LABS: CK-MB VALUE MASS 2.4 NG/ML (<3.6); MB/CK RELATIVE INDEX 1.75 (< OR =4); TROPONIN I 0.04 NG/ML (< 0.10)
[2019-06-28 18:45] VITALS: BP 122/69
--- NOTE | 2019-06-29 06:37 | REP ---
Portable chest x-ray: Sitting AP view. History: Chest pain. Comparison chest x-ray: June 15, 2019. Findings: A multilead pacemaker is seen in the right heart as before. EKG electrodes are seen. There are some increased linear markings in the left base and to a lesser extent right base consistent with plate-like atelectasis. Today's view is exposed at a slightly lesser level of inspiration. No definite infiltrate. Vascular calcification is seen in the aorta. Impression: Mild bibasilar plate-like atelectasis. No focal infiltrate. Pacemaker. Electronically Signed by Rikki Adams MD 06/29/2019 08:25 A
--- NOTE | 2019-06-29 12:05 | ECGEPIP ---
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
--- NOTE | 2019-06-29 12:09 | ECGEPIP ---
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
== END 2019-06-28 19:04 | disposition home or self-care (01) ==
LOC: M ED 13:40
DX: R07.89 Other chest pain (principal); I10 Essential (primary) hypertension; I48.91 Unspecified atrial fibrillation; E78.5 Hyperlipidemia, unspecified; E07.9 Disorder of thyroid, unspecified; Z95.0 Presence of cardiac pacemaker; Z79.899 Other long term (current) drug therapy; Z79.890 Hormone replacement therapy; Z79.82 Long term (current) use of aspirin; Z79.4 Long term (current) use of insulin; Z79.01 Long term (current) use of anticoagulants

== ENCOUNTER 2019-07-11 13:35 | Emergency (ER) | payer MEDICARE, OTHER ==
[~2019-07-11] VITALS: Ht 180.3 cm; Wt 81.0 kg
[~2019-07-11 13:35] MED LIST changes: +MAG400TA
--- NOTE | 2019-07-11 14:11 | REP ---
Clinical: Altered mental status. Comparison: 06/28/2019. Findings: Mediastinum and cardiac silhouette are stable. Subtle scarring at the left base again noted and unchanged. No acute consolidation, effusion, or pneumothorax. Skeletal structures intact. Impression: Chronic stable changes. No acute cardiopulmonary process. Electronically Signed by Melecio Lema MD 07/11/2019 02:03 P
[2019-07-11 14:30] LABS: BASO % 0.3 % (0.0-1.0); EOS # 0.1 10^3/uL (0.0-0.5); EOS % 1.6 % (0.0-3.0); HEMOGLOBIN 12.9 g/dl (13.5-17.5); LYMPH # 1.6 10^3/uL (1.5-5.0); LYMPH % 21.5 % (24.0-44.0); MEAN CORPUSCULAR HEMOGLOBIN 31.5 pg (27.0-33.0); MEAN CORPUSCULAR HGB CONC 33.9 g/dl (32.0-36.5); MEAN CORPUSCULAR VOLUME 92.7 fl (80.0-96.0); MONO # 0.5 10^3/uL (0.0-0.8); MONO % 6.6 % (0.0-5.0); NEUTROPHILS # 5.2 10^3/uL (1.5-8.5); NEUTROPHILS % 69.7 % (36.0-66.0); PLATELET COUNT, AUTOMATED 238 10^3/uL (150-450); WHITE BLOOD COUNT 7.4 10^3/uL (4.0-10.0)
[2019-07-11 14:47] LABS: INR 1.33; PROTHROMBIN TIME 16.2 SECONDS (11.8-14.0)
[2019-07-11 15:07] LABS: ALBUMIN 3.8 GM/DL (3.2-5.2); BILIRUBIN,DIRECT 0.2 MG/DL (0.0-0.2); BILIRUBIN,TOTAL 0.7 MG/DL (0.2-1.0); CALCIUM LEVEL 9.1 MG/DL (8.8-10.2); CK-MB VALUE MASS 2.2 NG/ML (<3.6); CREATININE FOR GFR 1.41 MG/DL (0.70-1.30); DIGOXIN LEVEL 0.6 NG/ML (0.5-2.0); MB/CK RELATIVE INDEX 2.2 (< OR =4); POTASSIUM SERUM 4.4 MEQ/L (3.5-5.1); THYROID STIMULATING HORMONE 3.08 uIU/ML (0.358-3.740); TOTAL PROTEIN 7.1 GM/DL (6.4-8.2); TROPONIN I 0.03 NG/ML (< 0.10)
[2019-07-11] MEDS ORDERED: NS 500 ML IV ONE (15:30)
[2019-07-11] MEDS ORDERED: HumuLIN R (REGULAR) INSULIN (NovoLIN R) **100U/ML** PER UNIT SC STA (17:06)
[2019-07-11 17:48] LABS: HEMOGLOBIN A1c 9.7 %
[2019-07-11 18:05] VITALS: BP 112/61
--- NOTE | 2019-07-11 18:23 | ECGEPIP ---
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
== END 2019-07-11 18:07 | disposition home or self-care (01) ==
LOC: M ED 13:35
DX: R53.83 Other fatigue (principal); E11.65 Type 2 diabetes mellitus with hyperglycemia; R94.31 Abnormal electrocardiogram [ECG] [EKG]; Z95.0 Presence of cardiac pacemaker; I11.9 Hypertensive heart disease without heart failure; I21.9 Acute myocardial infarction, unspecified; E78.5 Hyperlipidemia, unspecified; K21.9 Gastro-esophageal reflux disease without esophagitis; E03.9 Hypothyroidism, unspecified; Z86.73 Personal history of transient ischemic attack (TIA), and cerebral infarction without residual deficits; Z98.61 Coronary angioplasty status; Z79.4 Long term (current) use of insulin; Z79.82 Long term (current) use of aspirin; Z79.84 Long term (current) use of oral hypoglycemic drugs; Z79.899 Other long term (current) drug therapy

== ENCOUNTER → 2019-07-15 | Outpatient (REF) | payer MEDICARE, OTHER ==
[~2019-07-15] MED LIST changes: -DIGO0.12 PO; +DIGO0.123 PO; +OMEP-172 PO; -OMEP20CA4 PO
[2019-07-15 12:36] LABS: CALCIUM LEVEL 9.1 MG/DL (8.8-10.2); CREATININE FOR GFR 1.29 MG/DL (0.70-1.30); GLOMERULAR FILTRATION RATE 56.5 (>35); POTASSIUM SERUM 4.6 MEQ/L (3.5-5.1); THYROID STIMULATING HORMONE 2.88 uIU/ML (0.358-3.740)
[2019-07-15 13:42] LABS: HEMOGLOBIN A1c 10.1 %
== END ==
LOC: M SFHCCLAY 07:50
PROVIDERS: ATTEND Family Medicine
DX: E11.9 Type 2 diabetes mellitus without complications (principal); E03.9 Hypothyroidism, unspecified
CPT/HCPCS: 80048; 83036; 84443; G0463

== ENCOUNTER → 2019-07-25 | Outpatient (REF) | payer MEDICARE, OTHER ==
[2019-07-25 17:18] LABS: FOLATE > 24.0 NG/ML; RHEUMATOID FACTOR QUANT < 10.0 IU/ML (<15.0)
[2019-07-25 17:20] LABS: VITAMIN B12 LEVEL 470 PG/ML
[2019-07-29 15:42] LABS: ANCA-ATYPICAL <1:20 titer (Neg:<1:20); ANTI DS-DNA AB Negative (Negative); ANTINUCLEAR ANTIBODIES DIRECT Negative (Negative); CYTOPLASMIC NEUTROP AB ANCA-C <1:20 titer (Neg:<1:20); PERINUCLEAR AB ANCA-P <1:20 titer (Neg:<1:20); SJOGREN'S ANTI SS-A <0.2 AI (0.0-0.9); SJOGREN'S ANTI SS-B <0.2 AI (0.0-0.9)
== END ==
LOC: M LAB REF 15:58
PROVIDERS: ATTEND Psychiatry & Neurology Neurology
DX: I63.9 Cerebral infarction, unspecified (principal); Z79.899 Other long term (current) drug therapy

== ENCOUNTER → 2019-09-16 | Outpatient (REF) | payer MEDICARE, OTHER ==
[~2019-09-16] MED LIST changes: -OMEP-172 PO; +OMEP1CAP73 PO
[2019-09-16 12:54] LABS: HEMOGLOBIN A1c 9.2 %
[2019-09-16 13:02] LABS: BLOOD UREA NITROGEN 17 MG/DL (7-18); CALCIUM LEVEL 8.8 MG/DL (8.8-10.2); CARBON DIOXIDE LEVEL 33 MEQ/L (21-32); CHLORIDE LEVEL 103 MEQ/L (98-107); CREATININE FOR GFR 1.04 MG/DL (0.70-1.30); GLOMERULAR FILTRATION RATE > 60.0 (>35); GLUCOSE, FASTING 259 MG/DL (70-100); SODIUM LEVEL 140 MEQ/L (136-145)
== END ==
LOC: M SFHCCLAY 09:14
PROVIDERS: ATTEND Family Medicine
DX: E11.9 Type 2 diabetes mellitus without complications (principal); E03.9 Hypothyroidism, unspecified
CPT/HCPCS: 80048; 83036; 84443; G0463

== ENCOUNTER 2019-09-22 11:26 | Day surgery (SDC) | payer MEDICARE, OTHER ==
[~2019-09-22] VITALS: Ht 180.3 cm; Wt 77.1 kg
[~2019-09-22 11:26] MED LIST changes: +LR 1,000 ML IV ONE
[2019-09-22] MEDS ORDERED: LIDOCAINE 1% SDV INJ 30 ML VIAL As Ordered ONE (13:44)
[2019-09-22] MEDS ORDERED: fentaNYL 100 MCG/2 ML INJECTION (J3010) As Ordered ONE (13:51)
[2019-09-22] MEDS ORDERED: ONDANSETRON 4MG/2ML VIAL (J2405) As Ordered ONE (13:51)
[2019-09-22] MEDS ORDERED: dexameTHASONE 4 MG/ML 1ML VIAL (J1100) As Ordered ONE (13:51)
[2019-09-22] MEDS ORDERED: LIDOCAINE 2% INJ 100 MG/5 ML SDV (FOR ANES.) As Ordered ONE (13:51)
[2019-09-22] MEDS ORDERED: ceFAZolin 2 GM/D5W 50 ML IV BAG (J0690 PER 500MG) As Ordered ONE (14:30)
[2019-09-22] MEDS ORDERED: propofoL 200 MG/20 ML VIAL As Ordered ONE (14:35)
[2019-09-22] MEDS ORDERED: ACETAMINOPHEN 1000MG 100ML IV BTL (OFIRMEV) (J0131 PER 10MG) As Ordered ONE (14:59)
[2019-09-22] MEDS ORDERED: ceFAZolin SOD 2 GM in IV 1 EA IV ONE (15:00)
--- NOTE | 2019-09-22 15:37 | RO ---
DATE OF PROCEDURE: 09/22/2019 PREOPERATIVE DIAGNOSIS: Right carpal tunnel syndrome. POSTOPERATIVE DIAGNOSIS: Right carpal tunnel syndrome. PROCEDURE: Right carpal tunnel release. SURGEON: Pj Patterson MD DRY END TESTER: ANESTHESIA: Local with sedation. ESTIMATED BLOOD LOSS: 1 mL. COMPLICATIONS: None. INDICATIONS: 84-year-old with gradually worsening numbness in his hand on the right. He wished to go ahead with surgical treatment. Electromyogram (EMG) conduction study was positive. He failed conservative management and he understood the nature of this, the risks of bleeding, infection, damage to nerve, vessels, persistent pain, recurrence, among others. DESCRIPTION OF PROCEDURE: The patient was taken to the operating room and placed in supine position after sedation was introduced. Under sterile conditions, after time-out was performed, I then injected some 1% plain lidocaine in the proximal ulnar palm. We prepped and draped the hand in the usual sterile fashion. I created a longitudinal incision along the proximal ulnar palm and bluntly dissected down through subcutaneous tissue until the transverse carpal ligament was encountered. This was incised longitudinally with a #15 blade entering the ulnar border of the carpal tunnel. I then protected the median nerve with a Overgaard and dissected proximally and distally with a small dissecting scissor and #15 blade completing the release. I identified the median nerve, which was reperfusing to some degree. I irrigated copiously, close the skin with #5-0 nylon suture. Sterile dressing was applied. Tourniquet was deflated and he was taken to recovery room in stable condition. There were no known complications. The plan will be routine postop.
[2019-09-22 16:45] VITALS: BP 133/70
== END 2019-09-22 16:50 | disposition home or self-care (01) ==
LOC: M SDC 11:26
PROVIDERS: ATTEND Orthopaedic Surgery
DX: G56.01 Carpal tunnel syndrome, right upper limb (principal); I25.10 Atherosclerotic heart disease of native coronary artery without angina pectoris; I25.5 Ischemic cardiomyopathy; Z95.810 Presence of automatic (implantable) cardiac defibrillator; I48.0 Paroxysmal atrial fibrillation; I95.1 Orthostatic hypotension; R94.31 Abnormal electrocardiogram [ECG] [EKG]; K21.9 Gastro-esophageal reflux disease without esophagitis; E11.9 Type 2 diabetes mellitus without complications; E78.5 Hyperlipidemia, unspecified; M19.90 Unspecified osteoarthritis, unspecified site; Z86.73 Personal history of transient ischemic attack (TIA), and cerebral infarction without residual deficits; E03.9 Hypothyroidism, unspecified; Z79.899 Other long term (current) drug therapy; Z79.01 Long term (current) use of anticoagulants; Z79.82 Long term (current) use of aspirin; Z79.4 Long term (current) use of insulin
CPT/HCPCS: 64721; J0131; J0690; J1100; J2405; J3010

== ENCOUNTER → 2020-01-15 | Outpatient (REF) | payer MEDICARE, OTHER ==
[~2020-01-15] MED LIST changes: -LISI-1046 PO; +LISI2.5T2 PO; -LR 1,000 ML IV ONE
[2020-01-15 13:13] LABS: BASO # 0.1 10^3/uL (0.0-0.2); BASO % 1.1 % (0.0-1.0); EOS # 0.1 10^3/uL (0.0-0.5); EOS % 1.1 % (0.0-3.0); HEMATOCRIT 38.3 % (42.0-52.0); LYMPH # 1.2 10^3/uL (1.5-5.0); LYMPH % 27.4 % (24.0-44.0); MEAN CORPUSCULAR HEMOGLOBIN 32.5 pg (27.0-33.0); MEAN CORPUSCULAR HGB CONC 33.9 g/dl (32.0-36.5); MEAN CORPUSCULAR VOLUME 95.8 fl (80.0-96.0); MONO # 0.4 10^3/uL (0.0-0.8); NEUTROPHILS # 2.7 10^3/uL (1.5-8.5); NEUTROPHILS % 61.4 % (36.0-66.0); PLATELET COUNT, AUTOMATED 237 10^3/uL (150-450); WHITE BLOOD COUNT 4.5 10^3/uL (4.0-10.0)
[2020-01-15 13:54] LABS: ALT/SGPT 36 U/L (12-78); BILIRUBIN,TOTAL 1.1 MG/DL (0.2-1.0); BLOOD UREA NITROGEN 30 MG/DL (7-18); CARBON DIOXIDE LEVEL 30 MEQ/L (21-32); CHLORIDE LEVEL 99 MEQ/L (98-107); CREATININE FOR GFR 1.21 MG/DL (0.70-1.30); GLOMERULAR FILTRATION RATE > 60.0 (>35); GLUCOSE, FASTING 394 MG/DL (70-100); POTASSIUM SERUM 5.1 MEQ/L (3.5-5.1); SODIUM LEVEL 136 MEQ/L (136-145); TOTAL PROTEIN 6.9 GM/DL (6.4-8.2)
[2020-01-15 14:09] LABS: HEMOGLOBIN A1c 9.5 %
== END ==
LOC: M SFHCCLAY 07:48
PROVIDERS: ATTEND Family Medicine
DX: E11.9 Type 2 diabetes mellitus without complications (principal); E03.9 Hypothyroidism, unspecified; I50.22 Chronic systolic (congestive) heart failure
CPT/HCPCS: 80053; 83036; 84443; 85025; G0463

== ENCOUNTER → 2020-04-20 | Outpatient (REF) | payer MEDICARE, OTHER ==
[~2020-04-20] MED LIST changes: -AMIO200T PO; +AMIO200T3 PO
[2020-04-20 20:05] LABS: ALBUMIN 3.7 GM/DL (3.2-5.2); ALT/SGPT 31 U/L (12-78); BILIRUBIN,TOTAL 0.7 MG/DL (0.2-1.0); BLOOD UREA NITROGEN 29 MG/DL (7-18); CALCIUM LEVEL 9.2 MG/DL (8.8-10.2); CARBON DIOXIDE LEVEL 31 MEQ/L (21-32); CHLORIDE LEVEL 103 MEQ/L (98-107); CHOLESTEROL LEVEL 109 MG/DL (<200); CHOLESTEROL RISK RATIO 1.981 (<5); CREATININE FOR GFR 1.12 MG/DL (0.70-1.30); GLOMERULAR FILTRATION RATE > 60.0 (>35); GLUCOSE, FASTING 292 MG/DL (70-100); HDL CHOLESTEROL 55 MG/DL (>40); LDL CHOLESTEROL 44 MG/DL (<100); NON-HDL-C 54 MG/DL; SODIUM LEVEL 138 MEQ/L (136-145); TOTAL PROTEIN 6.6 GM/DL (6.4-8.2); TRIGLYCERIDES LEVEL 52 MG/DL (<150)
[2020-04-20 20:33] LABS: HEMOGLOBIN A1c 10.6 %
== END ==
LOC: M LABDRAWC 19:26
PROVIDERS: ATTEND Family Medicine
DX: E11.9 Type 2 diabetes mellitus without complications (principal); E03.9 Hypothyroidism, unspecified; E78.2 Mixed hyperlipidemia
CPT/HCPCS: 36415; 80053; 80061; 83036; 84443; G0463

== ENCOUNTER 2020-06-26 23:25 | Emergency (ER) | payer MEDICARE, OTHER ==
[~2020-06-26] VITALS: Ht 182.9 cm; Wt 77.2 kg
--- NOTE | 2020-06-27 00:32 | REPVR ---
PROCEDURE INFORMATION: Exam: US Abdomen, Limited; Right Upper Quadrant Exam date and time: 06/26/2020 12:21 AM Age: 84 years old Clinical indication: Abdominal pain; Epigastric; Additional info: Ruq pain TECHNIQUE: Imaging protocol: US abdomen. Real time ultrasound with image documentation. Limited exam focused on the right upper quadrant. COMPARISON: No relevant prior studies available. FINDINGS: Liver: Liver is homogeneous in echotexture, with no focal lesion. Gallbladder: Gallbladder demonstrates a mural polyp measuring 2 x 4 mm. No stone, mural edema or pericholecystic fluid. No elicited pain to RUQ transducer pressure during the exam. Common bile duct: Common bile duct measures 5 mm in diameter. Pancreas: Pancreas is sonographically normal. Right kidney: Right kidney measures 11.7 cm in long axis. Right kidney appears normal. Intraperitoneal space: No free fluid. IMPRESSION: Adherent gallbladder wall polyp. No calcified stone, duct obstruction or gallbladder wall thickening Electronically signed by: Michael Hughes On 06/27/2020 00:32:23 AM
[2020-06-27 00:52] LABS: BASO % 0.7 % (0.0-1.0); EOS # 0.2 10^3/uL (0.0-0.5); EOS % 3.7 % (0.0-3.0); HEMOGLOBIN 12.5 g/dl (13.5-17.5); LYMPH % 37.5 % (24.0-44.0); MEAN CORPUSCULAR HEMOGLOBIN 30.3 pg (27.0-33.0); MEAN CORPUSCULAR HGB CONC 32.1 g/dl (32.0-36.5); MEAN CORPUSCULAR VOLUME 94.7 fl (80.0-96.0); MONO # 0.5 10^3/uL (0.0-0.8); MONO % 8.7 % (0.0-5.0); NEUTROPHILS # 2.6 10^3/uL (1.5-8.5); NEUTROPHILS % 49.2 % (36.0-66.0); PLATELET COUNT, AUTOMATED 224 10^3/uL (150-450); RED BLOOD COUNT 4.12 10^6/uL (4.30-6.10); WHITE BLOOD COUNT 5.4 10^3/uL (4.0-10.0)
[2020-06-27 02:08] LABS: ALBUMIN 3.9 GM/DL (3.2-5.2); ALT/SGPT 26 U/L (12-78); BILIRUBIN,DIRECT 0.1 MG/DL (0.0-0.2); BILIRUBIN,TOTAL 0.4 MG/DL (0.2-1.0); BLOOD UREA NITROGEN 24 MG/DL (7-18); CALCIUM LEVEL 9.5 MG/DL (8.8-10.2); CARBON DIOXIDE LEVEL 33 MEQ/L (21-32); CHLORIDE LEVEL 102 MEQ/L (98-107); CK-MB VALUE MASS 4.3 NG/ML (<3.6); CPK CREATINE PHOSPHOKINASE 394 U/L (39-308); GLOMERULAR FILTRATION RATE > 60.0 (>35); GLUCOSE, FASTING 186 MG/DL (70-100); LIPASE 182 U/L (73-393); MB/CK RELATIVE INDEX 1.09 (< OR =4); POTASSIUM SERUM 4.2 MEQ/L (3.5-5.1); SODIUM LEVEL 139 MEQ/L (136-145); TOTAL PROTEIN 7.2 GM/DL (6.4-8.2); TROPONIN I 0.02 NG/ML (< 0.10)
[2020-06-27] MEDS ORDERED: ISOVUE-370 76% 100ML VIAL As Ordered ONE (02:31)
--- NOTE | 2020-06-27 03:28 | REPVR ---
PROCEDURE INFORMATION: Exam: CT Angiography Chest With Contrast Exam date and time: 06/27/2020 2:54 AM Age: 84 years old Clinical indication: Right-sided chest pain; Additional info: Right sided pain TECHNIQUE: Imaging protocol: Computed tomographic angiography of the chest with intravenous contrast. 3D rendering (Not supervised by radiologist): MIP and/or 3D reconstructed images were created by the technologist. Radiation optimization: All CT scans at this facility use at least one of these dose optimization techniques: automated exposure control; mA and/or kV adjustment per patient size (includes targeted exams where dose is matched to clinical indication); or iterative reconstruction. Contrast material: ISOVUE 370; Contrast volume: 100 ml; Contrast route: INTRAVENOUS (IV); COMPARISON: CT ANGIO CHEST 11/23/2018 12:33 AM FINDINGS: Tubes, catheters and devices: Left chest pacemaker. Pulmonary arteries: Normal. No pulmonary emboli. Aorta: Atherosclerotic disease of the thoracic aorta. Lungs: Bibasilar dependent atelectasis. Pleural space: Unremarkable. No pneumothorax. No pleural effusion. Heart: Atherosclerotic disease of the coronary arteries. Lymph nodes: Unremarkable. No enlarged lymph nodes. Bones/joints: Multilevel degenerative disease and osteopenia.. No acute fracture. Soft tissues: Unremarkable. IMPRESSION: No acute pulmonary embolic disease. Electronically signed by: Olaf Paulson On 06/27/2020 03:28:47 AM
--- NOTE | 2020-06-27 03:39 | REPVR ---
PROCEDURE INFORMATION: Exam: CT Abdomen And Pelvis With Contrast Exam date and time: 06/27/2020 2:54 AM Age: 84 years old Clinical indication: Abdominal pain; Localized; Right; Additional info: Right sided pain TECHNIQUE: Imaging protocol: Computed tomography of the abdomen and pelvis with intravenous contrast. Radiation optimization: All CT scans at this facility use at least one of these dose optimization techniques: automated exposure control; mA and/or kV adjustment per patient size (includes targeted exams where dose is matched to clinical indication); or iterative reconstruction. Contrast material: ISOVUE 370; Contrast volume: 100 ml; Contrast route: INTRAVENOUS (IV); COMPARISON: GALLBLADDER US 06/27/2020 12:10 AM FINDINGS: Lungs: Bilateral dependent atelectasis. Liver: Normal. No mass. Gallbladder and bile ducts: Normal. No calcified stones. No ductal dilation. Pancreas: Normal. No ductal dilation. Spleen: Normal. No splenomegaly. Adrenal glands: Normal. No mass. Kidneys and ureters: Left renal cortical scarring. Stomach and bowel: Moderate stool in the colon suggestive of constipation. Appendix: No evidence of appendicitis. Intraperitoneal space: Unremarkable. No free air. No significant fluid collection. Vasculature: Atherosclerotic disease the abdominal aorta. 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 Punctate calcifications in the pelvis adjacent to the ureters likely represent small phleboliths. Lymph nodes: Unremarkable. No enlarged lymph nodes. Urinary bladder: Unremarkable as visualized. Reproductive: Unremarkable as visualized. Bones/joints: Degenerative changes in the bilateral hips. Stenosis of the spinal canal at L3-L4. Multilevel degenerative disease and facet hypertrophy of the lumbar spine. Soft tissues: Unremarkable. IMPRESSION: Atherosclerotic disease the abdominal aorta. 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 No bowel obstruction. No evidence of acute appendicitis. No hydronephrosis or nephrolithiasis bilaterally. Punctate calcifications in the pelvis adjacent to the ureters likely represent small phleboliths. Electronically signed by: Olaf Paulson On 06/27/2020 03:39:32 AM
[2020-06-27 04:21] VITALS: BP 107/66
--- NOTE | 2020-06-28 10:07 | ECGEPIP ---
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
--- NOTE | 2020-06-28 12:32 | ED PDOC ---
Post-Departure Follow-Up dr abbasi faxed formal report of ct abd/p for fu groverg Sadie Tejada MD Jun 28, 2020 12:32
--- NOTE | 2020-06-28 12:33 | ED PDOC ---
Post-Departure Follow-Up gb us also faxed to Sadie Kendrick MD Jun 28, 2020 12:33
== END 2020-06-27 04:39 | disposition home or self-care (01) ==
LOC: M ED 23:25
DX: R10.9 Unspecified abdominal pain (principal); I70.0 Atherosclerosis of aorta; E11.9 Type 2 diabetes mellitus without complications; E78.5 Hyperlipidemia, unspecified; K21.9 Gastro-esophageal reflux disease without esophagitis; M81.0 Age-related osteoporosis without current pathological fracture; I50.9 Heart failure, unspecified; Z95.0 Presence of cardiac pacemaker; Z79.01 Long term (current) use of anticoagulants; Z79.84 Long term (current) use of oral hypoglycemic drugs; Z79.82 Long term (current) use of aspirin; Z79.899 Other long term (current) drug therapy
CPT/HCPCS: 36415; 71275; 74177; 76705; 80048; 80076; 81001; 82550; 82553; 83690; 84484; 85025; 93005; 93041; 99284; Q9967

== ENCOUNTER → 2020-08-20 | Outpatient (REF) | payer MEDICARE, OTHER ==
[~2020-08-20] MED LIST changes: +ISOS1TAB35 PO; +ISOS1TAB36 PO; -ISOS30TA4 PO; -ISOS60TA2 PO; -MAG400TA; +MAGN400T35
[2020-08-20 16:46] LABS: ALBUMIN 4.1 GM/DL (3.2-5.2); ALT/SGPT 64 U/L (12-78); BILIRUBIN,TOTAL 0.8 MG/DL (0.2-1.0); BLOOD UREA NITROGEN 25 MG/DL (7-18); CARBON DIOXIDE LEVEL 31 MEQ/L (21-32); CHLORIDE LEVEL 96 MEQ/L (98-107); GLOMERULAR FILTRATION RATE > 60.0 (>35); GLUCOSE, FASTING 367 MG/DL (70-100); SODIUM LEVEL 133 MEQ/L (136-145); TOTAL PROTEIN 6.9 GM/DL (6.4-8.2)
[2020-08-20 16:49] LABS: HEMOGLOBIN A1c 11.2 %
== END ==
LOC: M SFHCCLAY 10:38
PROVIDERS: ATTEND Family Medicine
DX: E11.9 Type 2 diabetes mellitus without complications (principal)
CPT/HCPCS: 80053; 83036; G0463

== ENCOUNTER → 2021-01-21 | Outpatient (REF) | payer MEDICARE, OTHER ==
[2021-01-21 12:12] LABS: BASO % 0.6 % (0.0-1.0); EOS % 0.6 % (0.0-3.0); HEMATOCRIT 41.9 % (42.0-52.0); LYMPH # 1.1 10^3/uL (1.5-5.0); LYMPH % 22.8 % (24.0-44.0); MEAN CORPUSCULAR HEMOGLOBIN 31.3 pg (27.0-33.0); MEAN CORPUSCULAR HGB CONC 33.4 g/dl (32.0-36.5); MEAN CORPUSCULAR VOLUME 93.7 fl (80.0-96.0); MONO # 0.5 10^3/uL (0.0-0.8); NEUTROPHILS # 3.3 10^3/uL (1.5-8.5); NEUTROPHILS % 65.8 % (36.0-66.0); PLATELET COUNT, AUTOMATED 255 10^3/uL (150-450); RED BLOOD COUNT 4.47 10^6/uL (4.30-6.10)
[2021-01-21 13:34] LABS: ALBUMIN 4.2 GM/DL (3.2-5.2); BILIRUBIN,TOTAL 0.9 MG/DL (0.2-1.0); CALCIUM LEVEL 9.4 MG/DL (8.8-10.2); CREATININE FOR GFR 2.29 MG/DL (0.70-1.30); FREE T4 1.36 NG/DL (0.76-1.46); POTASSIUM SERUM 5.2 MEQ/L (3.5-5.1); THYROID STIMULATING HORMONE 3.65 uIU/ML (0.358-3.740); TOTAL PROTEIN 7.7 GM/DL (6.4-8.2); TOTAL T3 50.3 NG/DL (60.0-181.0)
[2021-01-21 21:33] LABS: HEMOGLOBIN A1c 10.6 %
[2021-01-24 16:08] LABS: H PYLORI SERUM QUANT IGA <9.0 units (0.0-8.9); H PYLORI SERUM QUANT IGM <9.0 units (0.0-8.9); H PYLORI SERUM QUANT IgG ABY 0.21 (0.00-0.79)
== END ==
LOC: M SFHCCLAY 08:35
PROVIDERS: ATTEND Family Medicine
DX: R11.0 Nausea (principal); R12 Heartburn; E03.9 Hypothyroidism, unspecified; E11.9 Type 2 diabetes mellitus without complications
CPT/HCPCS: 80053; 83036; 83735; 84439; 84443; 84480; 85025; 86677; G0463

== ENCOUNTER → 2021-03-09 | Outpatient (REF) | payer MEDICARE, OTHER ==
[~2021-03-09] MED LIST changes: -LISI2.5T2 PO; +LISI2.5T9 PO
[2021-03-09 16:15] LABS: CALCIUM LEVEL 9.5 MG/DL (8.8-10.2); CREATININE FOR GFR 1.23 MG/DL (0.70-1.30); GLOMERULAR FILTRATION RATE 59.4 (>35); POTASSIUM SERUM 5.1 MEQ/L (3.5-5.1)
== END ==
LOC: M SFHCCLAY 11:08
PROVIDERS: ATTEND Family Medicine
DX: E11.9 Type 2 diabetes mellitus without complications (principal); Z79.4 Long term (current) use of insulin
CPT/HCPCS: 80048; G0463

== ENCOUNTER → 2021-03-24 | Outpatient (CLI) | payer MEDICARE, OTHER ==
[~2021-03-24] MED LIST changes: +E-Z-GAS II EFFERVESCENT PACKET (SODIUM BICARB./CITRIC ACID/SIMETHICONE) As Ordered ONE; +E-Z-HD 98% w/w 340GM SUSP BTL As Ordered ONE; +E-Z-PAQUE 96% w/w SUSP 176GM BTL As Ordered ONE
--- NOTE | 2021-03-24 10:13 | REP ---
INDICATION: NAUSEA HEARTBURN HAS US 1ST THE XRAY. COMPARISON: None. TECHNIQUE: Routine ultrasound FINDINGS: The gallbladder shows normal size. There is a 4 mm polyp. The wall is not thickened measuring 2 mm. Gallstones. The common bile duct measures 4 mm. There is mild fatty infiltration of the liver. There is no mass or biliary tract dilatation. The visualized portions of the pancreas show no abnormality. Right kidney shows normal size measuring 11.5. No hydronephrosis, mass, cyst or calculus. IMPRESSION: 4 mm gallbladder polyp. Fatty infiltration of the liver. <Electronically signed by Donte Mayers > 03/24/21 [id number]
--- NOTE | 2021-03-24 21:56 | REP ---
INDICATION: NAUSEA HEARTBURN US 1ST THEN XRAY. COMPARISON: None. TECHNIQUE: The procedure was performed under the direct supervision of Dr. Adams. The images were reviewed with Dr. Adams. Liquid barium and gas producing crystals were given in the erect position as well as liquid barium in the prone oblique position in order to perform a double contrast upper GI examination. Additionally liquid barium was given at the end of the examination in order to perform a small bowel follow through. A combination od fluoroscopy, spot films and last image hold technology was utilized, 1.6 minutes of fluoro time was utilized for this procedure. FINDINGS: The director payment film shows no organomegaly or pathological masses. The intestinal gas pattern is non-specific. The oral and pharyngeal stages of deglutition are unremarkable. During esophageal transport there are tertiary waves demonstrated. There is no esophagitis, stricture or mucosal ring. There is a sliding-type hiatal hernia. The stomach barrios are normally outlined. The rugal folds are smooth and regular. There is no gastritis neoplasm or ulcer disease. The duodenal barrios are normally outlined . The mucosal folds are smooth and regular. There is no duodenitis pancreatitis peptic ulcer disease or neoplasm. The visualized portion of the proximal small bowel appears normal in course and caliber. The barium column was followed through the small bowel to the level of the terminal ileum. Small bowel transit time is approximately 1 hour. During fluoroscopy gentle palpation shows all loops are freely movable and pliable. There are no fixed or angulated loops. The small bowel mucosal pattern is normal in course and caliber. There is no transition to suggest a partial small-bowel obstruction. Spot filming of the terminal ileum shows it to be unremarkable. IMPRESSION: 1. Tertiary waves. 2. There is a sliding-type hiatal hernia. . <Electronically signed by Todd Marquez > 03/24/21 [id number] <Electronically signed by Etienne Adams > 03/24/21 [id number]
== END ==
LOC: M RAD 09:05
PROVIDERS: ATTEND Family Medicine
DX: R11.0 Nausea (principal); K21.9 Gastro-esophageal reflux disease without esophagitis

== ENCOUNTER → 2021-04-22 | Outpatient (REF) | payer MEDICARE, OTHER ==
[~2021-04-22] MED LIST changes: -E-Z-GAS II EFFERVESCENT PACKET (SODIUM BICARB./CITRIC ACID/SIMETHICONE) As Ordered ONE; -E-Z-HD 98% w/w 340GM SUSP BTL As Ordered ONE; -E-Z-PAQUE 96% w/w SUSP 176GM BTL As Ordered ONE
[2021-04-22 11:56] LABS: HEMOGLOBIN A1c 11.3 %
[2021-04-22 12:19] LABS: ALBUMIN 3.7 GM/DL (3.2-5.2); BILIRUBIN,TOTAL 0.6 MG/DL (0.2-1.0); CALCIUM LEVEL 9.3 MG/DL (8.8-10.2); CHOLESTEROL RISK RATIO 2.129 (<5); CREATININE FOR GFR 1.31 MG/DL (0.70-1.30); GLOMERULAR FILTRATION RATE 55.2 (>35); MAGNESIUM LEVEL 2.3 MG/DL (1.8-2.4); POTASSIUM SERUM 4.9 MEQ/L (3.5-5.1); TOTAL PROTEIN 6.7 GM/DL (6.4-8.2)
== END ==
LOC: M SFHCCLAY 08:18
PROVIDERS: ATTEND Family Medicine
DX: E11.9 Type 2 diabetes mellitus without complications (principal); R12 Heartburn
CPT/HCPCS: 80053; 80061; 83036; 83735; G0463

== ENCOUNTER → 2021-07-25 | Outpatient (REF) | payer MEDICARE, OTHER ==
[~2021-07-25] MED LIST changes: -AMIO200T3 PO; +AMIO200T49 PO
[2021-07-26 12:27] LABS: ALT/SGPT 54 U/L (12-78); BILIRUBIN,TOTAL 0.5 MG/DL (0.2-1.0); BLOOD UREA NITROGEN 24 MG/DL (7-18); CALCIUM LEVEL 9.3 MG/DL (8.8-10.2); CARBON DIOXIDE LEVEL 28 MEQ/L (21-32); CHLORIDE LEVEL 107 MEQ/L (98-107); CREATININE FOR GFR 1.21 MG/DL (0.70-1.30); GLOMERULAR FILTRATION RATE > 60.0 (>35); GLUCOSE, FASTING 253 MG/DL (70-100); POTASSIUM SERUM 5.2 MEQ/L (3.5-5.1); SODIUM LEVEL 139 MEQ/L (136-145); TOTAL PROTEIN 6.8 GM/DL (6.4-8.2)
[2021-07-26 13:18] LABS: HEMOGLOBIN A1c 8.5 %
== END ==
LOC: M SFHCCLAY 14:45
PROVIDERS: ATTEND Family Medicine
DX: E11.9 Type 2 diabetes mellitus without complications (principal)

== ENCOUNTER → 2021-10-25 | Outpatient (REF) | payer MEDICARE, OTHER ==
[2021-10-26 12:03] LABS: CALCIUM LEVEL 9.5 MG/DL (8.8-10.2); CHOLESTEROL RISK RATIO 2.291 (<5); CREATININE FOR GFR 1.42 MG/DL (0.70-1.30); GLOMERULAR FILTRATION RATE 50.2 (>35); MAGNESIUM LEVEL 2.4 MG/DL (1.8-2.4); POTASSIUM SERUM 4.5 MEQ/L (3.5-5.1)
== END ==
LOC: M LABDRAWC 11:24
PROVIDERS: ATTEND Physician Assistant
DX: I47.2 Ventricular tachycardia (principal); I25.10 Atherosclerotic heart disease of native coronary artery without angina pectoris

== ENCOUNTER 2021-11-09 11:34 | Emergency (ER) | payer MEDICARE, OTHER ==
[~2021-11-09] VITALS: Ht 180.3 cm; Wt 74.1 kg
[2021-11-09] MEDS ORDERED: TRUL0.5I (12:02)
[2021-11-09] MEDS ORDERED: NS 1,000 ML IV SCH (15:10)
[2021-11-09] MEDS ORDERED: ALBUTEROL 90 MCG/ACT 8GM HFA INHALER INH PRN (15:10)
[2021-11-09] MEDS ORDERED: ALBUTEROL SULFATE 2.5 MG/0.5 ML INH NEB SOLN INH PRN (15:10)
[2021-11-09] MEDS ORDERED: ACETAMINOPHEN TAB 650MG DOSE (2X325MG) PO PRN (15:10)
[2021-11-09] MEDS ORDERED: diphenhydrAMINE 50MG/ML VIAL (J1200) IV PRN (15:10)
[2021-11-09] MEDS ORDERED: methylPREDNISolone 125MG 2ML VIAL IV PRN (15:10)
[2021-11-09] MEDS ORDERED: EPINEPHrine INJ 1 MG/ML 1ML AMP IM PRN (15:10)
[2021-11-09] MEDS ORDERED: CANEMIS41 XX (15:53)
[2021-11-09 16:03] VITALS: O2SAT 98
[2021-11-09] MEDS ORDERED: BEBTELOVIMAB 175MG 2ML VIAL (EUA) IV ONE (17:00)
[2021-11-09 17:10] VITALS: BP 110/57
[2021-11-09 18:15] VITALS: BP 101/51
== END 2021-11-09 18:40 | disposition home or self-care (01) ==
LOC: M ED 11:34
DX: U07.1 COVID-19 (principal)

== ENCOUNTER → 2021-11-21 | Outpatient (REF) | payer MEDICARE, OTHER ==
[~2021-11-21] MED LIST changes: +CANEMIS41 XX; +TRUL0.5I
[2021-11-21 16:43] LABS: HEMOGLOBIN A1c 8.9 %
[2021-11-21 16:53] LABS: ALBUMIN 3.9 GM/DL (3.2-5.2); BILIRUBIN,TOTAL 0.6 MG/DL (0.2-1.0); CALCIUM LEVEL 9.3 MG/DL (8.8-10.2); CHOLESTEROL RISK RATIO 2.428 (<5); CREATININE FOR GFR 1.23 MG/DL (0.70-1.30); GLOMERULAR FILTRATION RATE 59.3 (>35); POTASSIUM SERUM 5.3 MEQ/L (3.5-5.1); THYROID STIMULATING HORMONE 1.6 uIU/ML (0.358-3.740)
== END ==
LOC: M SFHCCLAY 10:16
PROVIDERS: ATTEND Family Medicine
DX: E03.9 Hypothyroidism, unspecified (principal); E11.9 Type 2 diabetes mellitus without complications

== ENCOUNTER → 2022-06-20 | Outpatient (REF) | payer MEDICARE, OTHER ==
[2022-06-20 18:09] LABS: ALBUMIN 3.8 GM/DL (3.2-5.2); ALKALINE PHOSPHATASE 66 U/L (45-117); ALT/SGPT 54 U/L (12-78); AST/SGOT 40 U/L (7-37); BILIRUBIN,TOTAL 0.5 MG/DL (0.2-1.0); BLOOD UREA NITROGEN 24 MG/DL (7-18); CALCIUM LEVEL 9.4 MG/DL (8.8-10.2); CARBON DIOXIDE LEVEL 32 MEQ/L (21-32); CHLORIDE LEVEL 104 MEQ/L (98-107); CREATININE FOR GFR 1.08 MG/DL (0.70-1.30); GLOMERULAR FILTRATION RATE > 60.0 (>35); GLUCOSE, FASTING 143 MG/DL (70-100); POTASSIUM SERUM 4.9 MEQ/L (3.5-5.1); SODIUM LEVEL 138 MEQ/L (136-145); TOTAL PROTEIN 6.8 GM/DL (6.4-8.2)
[2022-06-20 21:52] LABS: HEMOGLOBIN A1c 8.3 %
== END ==
LOC: M SFHCCLAY 10:52
PROVIDERS: ATTEND Family Medicine
DX: E03.9 Hypothyroidism, unspecified (principal); E11.9 Type 2 diabetes mellitus without complications

== ENCOUNTER → 2022-09-12 | Outpatient (REF) | payer MEDICARE, OTHER ==
[2022-09-12 12:01] LABS: BASO % 0.5 % (0.0-1.0); EOS % 0.4 % (0.0-3.0); HEMATOCRIT 40.7 % (42.0-52.0); HEMOGLOBIN 13.3 g/dl (13.5-17.5); LYMPH # 1.2 10^3/uL (1.5-5.0); LYMPH % 16.3 % (24.0-44.0); MEAN CORPUSCULAR HEMOGLOBIN 31.7 pg (27.0-33.0); MEAN CORPUSCULAR HGB CONC 32.7 g/dl (32.0-36.5); MEAN CORPUSCULAR VOLUME 96.9 fl (80.0-96.0); MONO # 0.4 10^3/uL (0.0-0.8); MONO % 4.8 % (2.0-8.0); NEUTROPHILS # 5.7 10^3/uL (1.5-8.5); NEUTROPHILS % 77.9 % (36.0-66.0); PLATELET COUNT, AUTOMATED 227 10^3/uL (150-450); WHITE BLOOD COUNT 7.3 10^3/uL (4.0-10.0)
[2022-09-12 12:18] LABS: AMYLASE 69 U/L (30-118)
[2022-09-12 12:19] LABS: ALKALINE PHOSPHATASE 65 U/L (46-116); ALT/SGPT 63 U/L (7.0-40); AST/SGOT 52 U/L (<34); BILIRUBIN,TOTAL 0.7 MG/DL (0.3-1.2); BLOOD UREA NITROGEN 32 MG/DL (9-23); CALCIUM LEVEL 9.1 MG/DL (8.3-10.6); CARBON DIOXIDE LEVEL 32 MMOL/L (20-31); CHLORIDE LEVEL 100 MMOL/L (98-107); CREATININE FOR GFR 1.03 MG/DL (0.70-1.30); GLOMERULAR FILTRATION RATE > 60.0 (>35); GLUCOSE, FASTING 172 MG/DL (74-106); POTASSIUM SERUM 4.7 MMOL/L (3.5-5.1); SODIUM LEVEL 137 MMOL/L (136-145); TOTAL PROTEIN 6.8 G/DL (5.7-8.2)
[2022-09-13 17:07] LABS: H PYLORI SERUM QUANT IGA <9.0 units (0.0-8.9); H PYLORI SERUM QUANT IGM <9.0 units (0.0-8.9); H PYLORI SERUM QUANT IgG ABY 0.32 (0.00-0.79)
== END ==
LOC: M SFHCCLAY 09:13
PROVIDERS: ATTEND Family Medicine
DX: R14.0 Abdominal distension (gaseous) (principal)

== ENCOUNTER → 2022-09-12 | Outpatient (CLI) | payer MEDICARE, OTHER | LOC: M CLY 09:21 | PROVIDERS: ATTEND Family Medicine | DX: R14.0 Abdominal distension (gaseous) (principal) ==

== ENCOUNTER → 2023-02-12 | Outpatient (REF) | payer MEDICARE, OTHER ==
[2023-02-12 11:24] LABS: ALBUMIN 3.7 G/DL (3.2-5.2); ALKALINE PHOSPHATASE 56 U/L (46-116); ALT/SGPT 25 U/L (7.0-40); AST/SGOT 20 U/L (<34); BLOOD UREA NITROGEN 21 MG/DL (9-23); CALCIUM LEVEL 9.4 MG/DL (8.3-10.6); CARBON DIOXIDE LEVEL 31 MMOL/L (20-31); CHLORIDE LEVEL 104 MMOL/L (98-107); CHOLESTEROL LEVEL 112 MG/DL (<200); CHOLESTEROL RISK RATIO 2.45 (<5); GLOMERULAR FILTRATION RATE > 60.0 (>35); GLUCOSE, FASTING 141 MG/DL (74-106); HDL CHOLESTEROL 45.6 MG/DL (>40); LDL CHOLESTEROL 55.2 MG/DL (<100); NON-HDL-C 66.4 MG/DL; POTASSIUM SERUM 4.3 MMOL/L (3.5-5.1); SODIUM LEVEL 140 MMOL/L (136-145); TOTAL PROTEIN 6.2 G/DL (5.7-8.2); TRIGLYCERIDES LEVEL 56 MG/DL (<150)
[2023-02-12 11:55] LABS: HEMOGLOBIN A1c 7.9 % (4.0-6.0)
== END ==
LOC: M SFHCCLAY 08:22
PROVIDERS: ATTEND Family Medicine
DX: E11.9 Type 2 diabetes mellitus without complications (principal)

== ENCOUNTER → 2023-02-19 | Outpatient (CLI) | payer MEDICARE, OTHER | LOC: M CLY 10:01 | PROVIDERS: ATTEND Family Medicine | DX: M47.892 Other spondylosis, cervical region (principal); M54.2 Cervicalgia ==

== ENCOUNTER → 2023-05-01 | Outpatient (CLI) | payer MEDICARE, OTHER | LOC: M CLY 09:56 | PROVIDERS: ATTEND Physician Assistant | DX: S22.32XA Fracture of one rib, left side, initial encounter for closed fracture (principal); W19.XXXA Unspecified fall, initial encounter; Y92.9 Unspecified place or not applicable; Y93.9 Activity, unspecified; Y99.9 Unspecified external cause status ==

== ENCOUNTER → 2023-06-15 | Outpatient (REF) | payer MEDICARE, OTHER ==
[2023-06-15 17:34] LABS: BASO # 0.1 10^3/uL (0.0-0.2); BASO % 0.9 % (0.0-1.0); EOS % 0.5 % (0.0-3.0); HEMOGLOBIN 12.4 g/dl (13.5-17.5); LYMPH # 1.3 10^3/uL (1.5-5.0); MEAN CORPUSCULAR HEMOGLOBIN 31.6 pg (27.0-33.0); MEAN CORPUSCULAR HGB CONC 32.6 g/dl (32.0-36.5); MEAN CORPUSCULAR VOLUME 96.9 fl (80.0-96.0); MONO # 0.5 10^3/uL (0.0-0.8); MONO % 8.2 % (2.0-8.0); NEUTROPHILS # 3.7 10^3/uL (1.5-8.5); NEUTROPHILS % 66.2 % (36.0-66.0); PLATELET COUNT, AUTOMATED 210 10^3/uL (150-450); RED BLOOD COUNT 3.92 10^6/uL (4.30-6.10); WHITE BLOOD COUNT 5.6 10^3/uL (4.0-10.0)
[2023-06-15 17:48] LABS: HEMOGLOBIN A1c 7.8 % (4.0-6.0)
[2023-06-15 18:06] LABS: ALBUMIN 4.1 G/DL (3.2-5.2); ALKALINE PHOSPHATASE 61 U/L (46-116); ALT/SGPT 21 U/L (7.0-40); AST/SGOT 27 U/L (<34); BILIRUBIN,TOTAL 0.9 MG/DL (0.3-1.2); BLOOD UREA NITROGEN 31 MG/DL (9-23); CALCIUM LEVEL 9.5 MG/DL (8.3-10.6); CARBON DIOXIDE LEVEL 31 MMOL/L (20-31); CHLORIDE LEVEL 106 MMOL/L (98-107); CREATININE FOR GFR 1.01 MG/DL (0.70-1.30); GLOMERULAR FILTRATION RATE > 60.0 (>35); GLUCOSE, FASTING 130 MG/DL (74-106); POTASSIUM SERUM 5.3 MMOL/L (3.5-5.1); SODIUM LEVEL 142 MMOL/L (136-145); TOTAL PROTEIN 6.7 G/DL (5.7-8.2)
[2023-06-15 18:07] LABS: FREE T4 1.01 NG/DL (0.89-1.76); THYROID STIMULATING HORMONE 1.822 uIU/ML (0.55-4.78)
[2023-06-15 18:09] LABS: TOTAL T3 90.3 NG/DL (60.0-181.0)
== END ==
LOC: M SFHCCLAY 14:08
PROVIDERS: ATTEND Family Medicine
DX: E11.9 Type 2 diabetes mellitus without complications (principal); E03.9 Hypothyroidism, unspecified

== ENCOUNTER 2023-07-29 07:50 | Emergency (ER) | payer MEDICARE, OTHER ==
[~2023-07-29] VITALS: Ht 188 cm; Wt 83.0 kg
[2023-07-29] MEDS ORDERED: ATOR40TA75 PO (08:06)
[2023-07-29] MEDS ORDERED: LANTINJ4 SC (08:06)
[2023-07-29] MEDS ORDERED: ISTA0.5S OP (08:06)
[2023-07-29 08:44] LABS: BASO % 0.6 % (0.0-1.0); EOS # 0.1 10^3/uL (0.0-0.5); HEMOGLOBIN 12.7 g/dl (13.5-17.5); LYMPH # 1.4 10^3/uL (1.5-5.0); LYMPH % 27.9 % (24.0-44.0); MEAN CORPUSCULAR HEMOGLOBIN 32.2 pg (27.0-33.0); MEAN CORPUSCULAR HGB CONC 33.4 g/dl (32.0-36.5); MEAN CORPUSCULAR VOLUME 96.4 fl (80.0-96.0); MONO # 0.5 10^3/uL (0.0-0.8); NEUTROPHILS # 3.1 10^3/uL (1.5-8.5); NEUTROPHILS % 61.3 % (36.0-66.0); PLATELET COUNT, AUTOMATED 196 10^3/uL (150-450); RED BLOOD COUNT 3.94 10^6/uL (4.30-6.10)
[2023-07-29 09:09] LABS: BLOOD UREA NITROGEN 27 MG/DL (9-23); CARBON DIOXIDE LEVEL 29 MMOL/L (20-31); CHLORIDE LEVEL 106 MMOL/L (98-107); CREATININE FOR GFR 0.95 MG/DL (0.70-1.30); GLOMERULAR FILTRATION RATE > 60.0 (>35); GLUCOSE, FASTING 118 MG/DL (74-106); POTASSIUM SERUM 3.7 MMOL/L (3.5-5.1); SODIUM LEVEL 142 MMOL/L (136-145)
[2023-07-29] MEDS: GASTROGRAFIN SOLUTION 30ML PO SCH ×2 (09:56→10:30)
[2023-07-29] MEDS ORDERED: ISOVUE-370 76% 100ML VIAL As Ordered ONE (10:46)
[2023-07-29 15:30] VITALS: BP 134/69
[2023-07-29 15:35] VITALS: TEMP 97.4; O2SAT 95
== END 2023-07-29 15:55 | disposition home or self-care (01) ==
LOC: M ED 07:50
DX: K64.9 Unspecified hemorrhoids (principal); K59.00 Constipation, unspecified; E11.9 Type 2 diabetes mellitus without complications; E78.5 Hyperlipidemia, unspecified; Z86.79 Personal history of other diseases of the circulatory system; Z79.01 Long term (current) use of anticoagulants; Z79.83 Long term (current) use of bisphosphonates; Z79.82 Long term (current) use of aspirin; Z79.899 Other long term (current) drug therapy
CPT/HCPCS: 36415; 74177; 80048; 83605; 85025; 86850; 86900; 86901; 93041; 94760; 99285; Q9963; Q9967

== ENCOUNTER → 2023-10-09 | Outpatient (REF) | payer MEDICARE, OTHER ==
[~2023-10-09] MED LIST changes: +ISTA0.5S OP
== END ==
LOC: M SFHCCLAY 14:32
PROVIDERS: ATTEND Physician Assistant
DX: R19.7 Diarrhea, unspecified (principal); Z53.9 Procedure and treatment not carried out, unspecified reason

== ENCOUNTER → 2023-10-09 | Outpatient (CLI) | payer MEDICARE, OTHER | LOC: M CLY 13:54 | PROVIDERS: ATTEND Physician Assistant | DX: R19.7 Diarrhea, unspecified (principal) ==

== ENCOUNTER → 2023-10-10 | Outpatient (REF) | payer MEDICARE, OTHER | LOC: M LABDRAWC 11:13 | PROVIDERS: ATTEND Physician Assistant | DX: R19.7 Diarrhea, unspecified (principal); R10.817 Generalized abdominal tenderness ==

== ENCOUNTER → 2024-01-01 | Outpatient (CLI) | payer MEDICARE, OTHER | LOC: M CLY 11:44 | PROVIDERS: ATTEND Physician Assistant | DX: S32.020A Wedge compression fracture of second lumbar vertebra, initial encounter for closed fracture (principal); W19.XXXA Unspecified fall, initial encounter; Y92.73 Farm field as the place of occurrence of the external cause; Y93.9 Activity, unspecified; Y99.9 Unspecified external cause status ==

== ENCOUNTER → 2024-02-21 | Outpatient (CLI) | payer MEDICARE, OTHER | LOC: M SOG 07:59 | PROVIDERS: ATTEND Orthopaedic Surgery | DX: Z53.9 Procedure and treatment not carried out, unspecified reason (principal) ==

== ENCOUNTER → 2024-02-22 | Outpatient (CLI) | payer MEDICARE, OTHER | LOC: M SOG 07:50 | PROVIDERS: ATTEND Orthopaedic Surgery | DX: M48.56XA Collapsed vertebra, not elsewhere classified, lumbar region, initial encounter for fracture (principal) ==

== ENCOUNTER 2024-03-16 13:55 | Emergency (ER) | payer MEDICARE, OTHER ==
[~2024-03-16] VITALS: Ht 180.3 cm; Wt 81.1 kg
[2024-03-16 14:14] VITALS: TEMP 99.5
[2024-03-16 14:43] LABS: BASO % 0.1 % (0.0-1.0); EOS % 0.1 % (0.0-3.0); HEMOGLOBIN 13.2 g/dl (13.5-17.5); LYMPH # 0.7 10^3/uL (1.5-5.0); LYMPH % 4.7 % (24.0-44.0); MEAN CORPUSCULAR HEMOGLOBIN 31.4 pg (27.0-33.0); MONO # 0.6 10^3/uL (0.0-0.8); MONO % 4.5 % (2.0-8.0); NEUTROPHILS # 12.4 10^3/uL (1.5-8.5); NEUTROPHILS % 90.2 % (36.0-66.0); PLATELET COUNT, AUTOMATED 246 10^3/uL (150-450); RED BLOOD COUNT 4.21 10^6/uL (4.30-6.10); WHITE BLOOD COUNT 13.7 10^3/uL (4.0-10.0)
[2024-03-16 15:03] LABS: BLOOD UREA NITROGEN 43 MG/DL (9-23); CALCIUM LEVEL 9.1 MG/DL (8.3-10.6); CARBON DIOXIDE LEVEL 28 MMOL/L (20-31); CHLORIDE LEVEL 109 MMOL/L (98-107); CREATININE FOR GFR 0.96 MG/DL (0.70-1.30); GLOMERULAR FILTRATION RATE > 60.0 (>35); GLUCOSE, FASTING 86 MG/DL (74-106); POTASSIUM SERUM 4.4 MMOL/L (3.5-5.1); SODIUM LEVEL 143 MMOL/L (136-145)
[2024-03-16 15:14] LABS: HEMOGLOBIN A1c 8.1 % (4.0-6.0)
[2024-03-16] MEDS ORDERED: LANTINJ4 SC (17:06)
[2024-03-16 18:17] VITALS: BP 129/63; O2SAT 94
== END 2024-03-16 18:30 | disposition home or self-care (01) ==
LOC: M ED 13:55 → EDBD 13:55 → M ED 18:30
DX: E11.649 Type 2 diabetes mellitus with hypoglycemia without coma (principal); E78.5 Hyperlipidemia, unspecified; Z86.79 Personal history of other diseases of the circulatory system; Z95.0 Presence of cardiac pacemaker; Z79.01 Long term (current) use of anticoagulants; Z79.82 Long term (current) use of aspirin; Z79.02 Long term (current) use of antithrombotics/antiplatelets; Z79.4 Long term (current) use of insulin; Z79.899 Other long term (current) drug therapy

== ENCOUNTER → 2024-03-21 | Outpatient (REF) | payer MEDICARE, OTHER ==
[2024-03-21 17:54] LABS: ALBUMIN 3.9 G/DL (3.2-5.2); ALKALINE PHOSPHATASE 118 U/L (46-116); ALT/SGPT 47 U/L (7.0-40); AST/SGOT 40 U/L (<34); BILIRUBIN,TOTAL 0.8 MG/DL (0.3-1.2); BLOOD UREA NITROGEN 35 MG/DL (9-23); CALCIUM LEVEL 8.7 MG/DL (8.3-10.6); CARBON DIOXIDE LEVEL 30 MMOL/L (20-31); CHLORIDE LEVEL 105 MMOL/L (98-107); CREATININE FOR GFR 1.17 MG/DL (0.70-1.30); GLOMERULAR FILTRATION RATE > 60.0 (>35); GLUCOSE, FASTING 255 MG/DL (74-106); POTASSIUM SERUM 5.1 MMOL/L (3.5-5.1); SODIUM LEVEL 139 MMOL/L (136-145)
[2024-03-21 17:58] LABS: THYROID STIMULATING HORMONE 3.559 uIU/ML (0.55-4.78)
== END ==
LOC: M SFHCCLAY 09:31
PROVIDERS: ATTEND Family Medicine
DX: E11.9 Type 2 diabetes mellitus without complications (principal); E03.9 Hypothyroidism, unspecified

== ENCOUNTER → 2024-07-18 | Outpatient (REF) | payer MEDICARE, OTHER ==
[2024-07-18 18:17] LABS: HEMOGLOBIN A1c 8.9 % (4.0-6.0)
[2024-07-18 18:19] LABS: ALBUMIN 3.8 G/DL (3.2-5.2); ALKALINE PHOSPHATASE 71 U/L (40-129); ALT/SGPT 53 U/L (7.0-40); AST/SGOT 34 U/L (<34); BILIRUBIN,TOTAL 0.6 MG/DL (0.3-1.2); BLOOD UREA NITROGEN 33 MG/DL (9-23); CALCIUM LEVEL 9.8 MG/DL (8.3-10.6); CARBON DIOXIDE LEVEL 32 MMOL/L (20-31); CHLORIDE LEVEL 103 MMOL/L (98-107); CHOLESTEROL LEVEL 119 MG/DL (<200); CREATININE FOR GFR 1.01 MG/DL (0.70-1.30); GLOMERULAR FILTRATION RATE > 60.0 (>35); GLUCOSE, FASTING 281 MG/DL (74-106); HDL CHOLESTEROL 51.6 MG/DL (>40); NON-HDL-C 67.4 MG/DL; POTASSIUM SERUM 5.5 MMOL/L (3.5-5.1); SODIUM LEVEL 138 MMOL/L (136-145); TRIGLYCERIDES LEVEL 57 MG/DL (<150)
== END ==
LOC: M SFHCCLAY 11:29
PROVIDERS: ATTEND Family Medicine
DX: E11.9 Type 2 diabetes mellitus without complications (principal); E03.9 Hypothyroidism, unspecified; E78.2 Mixed hyperlipidemia